=== PATIENT | female | born 1985 | race African-American/Black ===

== ENCOUNTER 2018-08-07 15:38 | Inpatient (IN) | payer OTHER ==
[~2018-08-07] VITALS: Ht 160 cm; Wt 49.0 kg
[2018-08-07] MEDS ORDERED: SODIUM CHLORIDE 0.9% 1L BAG IV* STA (15:51)
[2018-08-07] MEDS ORDERED: AZITHROMYCIN 500MG/NS (PMX) 250 ML IV STA (15:51)
[2018-08-07] MEDS ORDERED: CEFTRIAXONE 1 GM/50 ML (PMX) 50 ML IVPB STA (15:51)
[2018-08-07] MEDS ORDERED: ACETAMINOPHEN 500 MG TAB ONE (16:51)
[2018-08-07] MEDS ORDERED: SULFAMETHOXAZOLE IVPB ONE (17:00)
[2018-08-07] MEDS ORDERED: ACETAMINOPHEN 500 MG TAB PO STA (17:00)
[2018-08-07] MEDS ORDERED: DEXTROSE IVPB ONE (17:00)
[2018-08-07] MEDS ORDERED: TRIMETHOPRIM IVPB ONE (17:00)
[2018-08-07] MEDS ORDERED: PROP10TA6 PO (17:09)
[2018-08-07] MEDS ORDERED: SULF1TAB31 PO (17:13)
[2018-08-07] MEDS ORDERED: BIKTARVY PO (17:13)
[2018-08-07] MEDS ORDERED: AZIT600T4 PO (17:13)
[2018-08-07] MEDS ORDERED: ONDANSETRON 4 MG INJ IV PRN ×2 (17:30→18:00)
[2018-08-07] MEDS ORDERED: ACETAMINOPHEN 325 MG TAB PO PRN ×2 (17:30→18:00)
--- NOTE | 2018-08-07 17:44 | ERD ---
ER Documentation Chief Complaint Chief Complaint fever , low saturation; cough HPI 33-year-old female with a history of HIV/AIDS noncompliant with medications sent by primary care physician for concerns of PCP pneumonia. Patient states that for several months she has been short of breath with intermittent fevers. She went to another hospital about 3 weeks ago and she was told that everything was fine. However she went to her primary care doctor, where labs were done and showed that her CD4 count is low. She is complaining of severe shortness of breath but no associated chest pain. She has generalized weakness with weight loss. No phlegm production or hemoptysis. ROS All systems reviewed and are negative except as per history of present illness. Medications Home Meds Reported Medications [Biktarvy] No Conflict Check, 1 TAB PO DAILY 08/07/18 Azithromycin* (Azithromycin*) 600 Mg Tablet, 600 MG PO DAILY for TO PREVENT PNEUMONIA, TAB 08/07/18 Sulfamethoxazole/Trimethoprim* (Bactrim Ds* Tablet) 1 Each Tablet, 1 TAB PO D AILY for TO PREVENT PNEUMONIA, TAB 08/07/18 Propranolol Hcl* (Propranolol Hcl*) 10 Mg Tablet, 10 MG PO BID for ANXIETY, TAB 08/07/18 Allergies Allergies: Coded Allergies: No Known Allergy (Unverified , 08/07/18) PMhx/Soc History of Surgery: Yes ( X2) Anesthesia Reaction: No Hx Neurological Disorder: No Hx Respiratory Disorders: No Hx Cardiac Disorders: No Hx Psychiatric Problems: Yes (ANXIETY) Hx Miscellaneous Medical Probl: Yes (SEBORRHEIC DERMAITIS, RHEUMATOID ARTHRITIS, FIBROADENOMA BREAST, VIT-D DEFI) Hx Alcohol Use: No Hx Substance Use: No Hx Tobacco Use: No Smoking Status: Never smoker FmHx Family History: No diabetes Physical Exam Vitals Vital Signs Date Temp Pulse Resp B/P (MAP) Pulse Ox O2 O2 Flow FiO2 Time Delivery Rate 08/07/18 123 42 103/62 99 Mask 10.0 17:32 (76) 08/07/18 Simple 10 16:35 Mask 08/07/18 104.7 143 32 193/88 75 15:47 (123) Physical Exam Const: In significant respiratory distress, very thin body habitus Head: Atraumatic Eyes: Normal Conjunctiva ENT: Dry mucous membranes normal External Ears, Nose and Mouth. Neck: Full range of motion. No meningismus. Resp: Tachypneic with retractions. Diminished breath sounds bilaterally with no obvious wheezing, rales, rhonchi, however respiratory effort poor Cardio: Tachycardic with regular rhythm, no murmurs. 2+ distal pulses Abd: Soft, non tender, non distended. Normal bowel sounds Skin: No petechiae or rashes Back: No midline or flank tenderness Ext: No cyanosis, or edema Neur: Awake and alert, no facial asymmetry, mentating normally, normal speech, moving all extremities Psych: Normal Mood and Affect Result Diagram: 08/07/18 1606 08/07/18 1606 Results 24 hrs Laboratory Tests Test 08/07/18 16:04 08/07/18 16:06 08/07/18 16:09 08/07/18 17:30 Serum HCG, NEGATIVE Qualitative White Blood Count 13.0 10^3/ul Red Blood Count 3.94 10^6/ul Hemoglobin 11.2 g/dl Hematocrit 34.2 % Mean Corpuscular 86.8 fl Volume Mean Corpuscular 28.4 pg Hemoglobin Mean Corpuscular 32.7 g/dl Hemoglobin Concent Red Cell 13.0 % Distribution Width Platelet Count 439 10^3/UL Mean Platelet 10.0 fl Volume Immature 1.200 % Granulocytes % Neutrophils % 73.9 % Lymphocytes % 18.8 % Monocytes % 4.9 % Eosinophils % 0.6 % Basophils % 0.6 % Nucleated Red Blood 0.0 /100WBC Cells % Immature 0.150 10^3/ul Granulocytes # Neutrophils # 9.6 10^3/ul Lymphocytes # 2.4 10^3/ul Monocytes # 0.6 10^3/ul Eosinophils # 0.1 10^3/ul Basophils # 0.1 10^3/ul Nucleated Red Blood 0.0 10^3/ul Cells # Sodium Level 132 mmol/L Potassium Level 4.4 mmol/L Chloride Level 102 mmol/L Carbon Dioxide 22 mmol/L Level Anion Gap 8 Blood Urea Nitrogen 12 mg/dl Creatinine 0.74 mg/dl Est Glomerular > 60 mL/min Filtrat Rate mL/min Glucose Level 137 mg/dl Calcium Level 9.2 mg/dl Total Bilirubin 0.6 mg/dl Direct Bilirubin 0.00 mg/dl Indirect Bilirubin 0.6 mg/dl Aspartate Amino 34 IU/L Transf (AST/SGOT) Alanine 15 IU/L Aminotransferase (A LT/SGPT) Alkaline 72 IU/L Phosphatase Total Protein 7.1 g/dl Albumin 3.4 g/dl Globulin 3.70 g/dl Albumin/Globulin 0.91 Ratio POC Venous Lactate 2.0 mmol/L Urine Color YELLOW Urine Clarity SLIGHTLY CLOUDY Urine pH 7.0 Urine Specific 1.013 [place] Urine Ketones NEGATIVE mg/dL Urine Nitrite NEGATIVE mg/dL Urine Bilirubin NEGATIVE mg/dL Urine Urobilinogen NEGATIVE mg/dL Urine Leukocyte NEGATIVE Michelle/ul Esterase Urine Microscopic 1 /HPF RBC Urine Microscopic 2 /HPF WBC Urine Squamous FEW /HPF Epithelial Cells Urine Bacteria FEW /HPF Urine Mucus FEW /HPF Urine Hemoglobin NEGATIVE mg/dL Urine Glucose NEGATIVE mg/dL Urine Total Protein NEGATIVE mg/dl Test 08/07/18 17:41 POC Beta HCG, NEGATIVE Qualitative Current Medications Medications Dose Sig/[place] Start Time Status Last (Trade) Ordered Route PRN Stop Time Admin Dose Reason Admin Sodium 1,350 ml BOLUS OVER 2 08/07/18 DC 08/07/18 Chloride HOURS STAT 15:51 08/07/18 16:24 (NS) IV* 15:53 Ceftriaxone 50 ml @ ONCE STAT 08/07/18 DC 08/07/18 Sodium 100 mls/hr IVPB 15:51 08/07/18 16:24 16:20 Azithromycin 250 ml @ ONCE STAT 08/07/18 DC 08/07/18 250 mls/hr IV 15:51 08/07/18 17:00 16:50 500 mg STK-MED 08/07/18 DC Acetaminophen ONCE .ROUTE 16:51 08/07/18 (Tylenol 16:52 Tab) 514 ml @ ONCE ONCE 08/07/18 DC Trimethoprim/ 343.333 IVPB 17:00 08/07/18 mls/hr 17:36 Sulfamethoxaz ole 14 ml/Dextrose 1,000 mg ONCE STAT 08/07/18 DC 08/07/18 Acetaminophen PO 17:00 08/07/18 17:51 (Tylenol 17:13 Tab) Ondansetron 4 mg ER BRIDGE 08/07/18 HCl (Zofran PRN IV 17:30 08/08/18 Inj) NAUSEA/VOMITI 17:29 NG 650 mg ER BRIDGE 08/07/18 Acetaminophen PRN PO 17:30 08/08/18 (Tylenol .MILD PAIN 17:29 Tab) 1-3 OR TEMP 150 ml @ Q24H IVPB 08/07/18 Levofloxacin/ 100 mls/hr 18:00 Dextrose 253.5 ml @ Q8 IVPB 08/07/18 UNV Trimethoprim/ 173.333 18:00 mls/hr Sulfamethoxaz ole 3.5 ml/Dextrose Sodium 1,000 ml @ Q24H IV 08/07/18 Chloride 40 mls/hr 17:36 IV Flush 3 ml PER 08/07/18 (NS 3 ml) PROTOCOL IV 18:00 Ondansetron 4 mg Q6H PRN 08/07/18 HCl (Zofran IV 18:00 Inj) NAUSEA/VOMITI NG 650 mg Q6H PRN 08/07/18 Acetaminophen PO .PAIN 1-3 18:00 (Tylenol OR TEMP Tab) 1 tab Q6H PRN 08/07/18 Acetaminophen PO .PAIN 4-6 18:00 / Hydrocodone Bitart ([place] (5/325)) Albuterol/ 3 ml Q6HWA RESP 08/07/18 Ipratropium THERAPY HHN 20:00 (Duoneb) Albuterol/ 3 ml Q2H RESP 08/07/18 Ipratropium THERAPY PRN 18:00 (Duoneb) HHN shortness of breath Budesonide 0.5 mg BID RESP 08/07/18 (Pulmicort THERAPY HHN 20:00 (Neb)) 40 mg Q8 IV 08/07/18 Methylprednis 22:00 olone Sodium Succinate (Solu-Medrol) Azithromycin 250 ml @ Q24H IVPB 08/08/18 UNV 250 mls/hr 18:00 Procedures/MDM EMERGENT LABS AND DIAGNOSTIC STUDIES: Lab Results above were reviewed and interpreted by me. CBC: leukocytosis, concerning for infection. Thrombocytosis, likely due to acute inflammatory process CMP: No evidence of clinically significant electrolyte abnormality, acidosis, renal failure, hypoglycemia, liver disease, or biliary obstruction Troponin within normal limits, not indicative of cardiac ischemia Lactate within normal limits but borderline UA: Pending negative 12-lead EKG was interpreted by Luke Coulter MD: sinus tachycardia at 104 bpm Normal axis Normal intervals No acute ST or T wave changes suggestive of acute ischemia or STEMI. Radiology Results as interpreted by Radiology below were reviewed by Juan Carlos Coulter MD: Chest x-ray shows bilateral opacities consistent with pneumonia Initial Nursing notes reviewed. Previous Medical Records requested via the Electronic Health Record. EMERGENCY DEPARTMENT COURSE / MEDICAL DECISION MAKING: Admit MDM: Patient presented with severe respiratory distress and fever. Given concern for pneumonia, sepsis work-up initiated. No evidence of severe sepsis or septic shock. Her oxygen saturation was low, she was tachypneic and tachycardic with fever upon arrival. Her saturations improved with supplemental oxygen by facemask. Chest x-ray does confirm evidence of bilateral pneumonia. Patient is most likely suffering from AIDS as well. Antibiotics for community-acquired pneumonia were given as well as Bactrim IV to cover PCP. I reviewed the labs sent by the primary care doctor. It seems that her CD4 is low and her TB test was indeterminate. For this reason, patient was placed in isolation. Patient's infectious symptoms have not stabilized, and the patient is at risk of rapid decompensation. The patient will be admitted for careful hydration, antibiotic therapy, and infectious source control. Severe Sepsis criteria: Infectious source: PCP pneumonia End organ damage indicated by: Lactate 2.0 mmol/L Acute Resp Failure (sat < 92% w/o oxygen) Sepsis Management: Time of recognition of severe sepsis: 1540 Within 3 hours of recognition: Blood cultures x 2 before broad-spectrum antibiotics: Yes 30 ml/kg NS bolus Completed Initial lactate 2.0 Repeat lactate pending Septic Shock Assessment: Any lactic acid > 4.0 No Persistent hypotension (SBP < 90 or 40 mmHg drop, MAP < 65) despite 30 mL/kg IV fluid bolus No Accepting Care Team Current data and ongoing care discussed. Admitting Physician: Dr. Faye Elena Wagon Driller(s): Outstanding Data: cultures, repeat lactate Critical Care Time: 40 minutes Treatments/Evaluations: Close monitoring and treatment of unstable vital signs, cardiorespiratory, and neurologic status, while maintaining tight balance of fluid, respiratory, and cardiac interventions. This includes the administration of emergency fluid management while maintaining close respiratory support as well as the provision of immediate and broad-spectrum antibiotic therapy, while performing a simultaneous assessment for possible sources in order to direct targeted therapy. This time includes discussing the case with the patient and the patients family.This time also includes the consideration for invasive and chemical support to prevent cardiopulmonary collapse. This time does not include all procedures stated elsewhere in this record. This time also includes reviewing old records, labs and radiological studies. This time includes examining and reexamining the patient. Additionally, this time also includes arranging care with admitting and consulting physicians. Departure Diagnosis: Primary Impression: Acute respiratory failure with hypoxia Additional Impressions: Bilateral pneumonia Pneumonia type: due to unspecified organism Lung location: upper lobe of lung Qualified Codes: J18.1 - Lobar pneumonia, unspecified organism AIDS (acquired immunodeficiency syndrome), CD4 <=200 Condition: Serious LETICIA COULTER MD Aug 07, 2018 17:44
[2018-08-07] MEDS ORDERED: HYDROCODONE/APAP (5/325) TAB PO PRN (18:00)
[2018-08-07] MEDS ORDERED: DEXTROSE IVPB SCH ×2 (18:00→20:00)
[2018-08-07] MEDS ORDERED: SULFAMETHOXAZOLE IVPB SCH ×2 (18:00→20:00)
[2018-08-07] MEDS ORDERED: ALBUTEROL/IPRATROPIUM (NEB) 3 ML AMP HHN PRN (18:00)
[2018-08-07] MEDS ORDERED: NACL 0.9% 3 ML SYG IV SCH (18:00)
[2018-08-07] MEDS ORDERED: TRIMETHOPRIM IVPB SCH ×2 (18:00→20:00)
[2018-08-07] MEDS ORDERED: LEVOFLOXACIN 750MG/D5W (PMX) 150 ML IVPB SCH (18:00)
--- NOTE | 2018-08-07 18:21 | HP ---
Date/Time of Note Date/Time of Note DATE: 08/07/18 TIME: 18:20 Assessment/Plan VTE Prophylaxis Pharmacological prophylaxis: other Lines/Catheters IV [facility]ter [facility] (from [facility]): Saline Lock Assessment/Plan Hospital Course Patient is an -[place] female with a past medical history significant for HIV and's infection since she was born transmitted by her mother who presents to [facility] for shortness of breath. Patient has been having on and off respiratory symptoms for the past 5 months and has been off her HIV antiretrovirals for the past 2 months. Patient states that for the past 3 weeks she has been getting progressively worse short of breath and today when she had worsening shortness of breath she went to her HIV clinic and her doctor told her to be admitted to the hospital. Patient currently feels generally weak and does complain of cough but it is not productive. Patient states that due to the shortness of breath is the reason for the cough and is not having any production or bloody cough. Patient denies any significant nausea vomiting chest pain, bowel or bladder dysfunction or leg pain. Objective Physical exam General: Patient is laying in bed and answers questions appropriately Mentation: Patient is alert and oriented 4, Head: Normocephalic atraumatic Eyes: EOMI, pupils reactive to light Neck: Supple, nontender, midline Respiratory: Coarse to auscultation bilaterally Cardiovascular: regular rate, no obvious murmurs Gastrointestinal: non-tender to palpation, bowel sounds heard. Neurological: Moves all extremities spontaneously Skin: No new skin lesions Assessment and plan Sepsis secondary to pneumonia -Cultures -IV antibiotic -IV fluid Acute hypoxic respiratory distress -Secondary to multifocal pneumonia -Treatment as per pneumonia Multifocal pneumonia, possible PCP pneumonia -Patient is immunocompromised, will treat for PCP pneumonia versus other possible opportunistic infections -IV Bactrim, IV cefepime, IV azithromycin, IV fluconazole due to immune compromise status, last CD4 count was in the 60s done last week per patient, documents at bedside -Steroids -Nebulizers, DuoNeb and budesonide -On high flow nasal cannula -QuantiFERON ordered, -CT chest with IV contrast ordered to further elucidate pneumonia HIV -Last CD4 count done a week ago is 64, will repeat here with viral count as well -Noncompliant for the past 2 months, did start a new regimen 1 week ago. -Infectious disease consulted Fever -Secondary to above sepsis and pneumonia -Tylenol as needed Tachycardia -Secondary to above sepsis pneumonia -IV fluid -EKG noted Hypertensive urgency -Now within normal limits -Monitor closely Disposition -Infectious disease consultation pending -IV fluid, IV antibiotic, treatment for multifocal pneumonia, CT chest pending Result Diagram: 08/07/18 1606 08/07/18 1606 Results 24hrs Laboratory Tests Test 08/07/18 16:04 08/07/18 16:06 08/07/18 16:09 08/07/18 17:30 Serum HCG, NEGATIVE Qualitative White Blood Count 13.0 H Red Blood Count 3.94 L Hemoglobin 11.2 L Hematocrit 34.2 L Mean Corpuscular 86.8 Volume Mean Corpuscular 28.4 L Hemoglobin Mean Corpuscular 32.7 Hemoglobin Concent Red Cell 13.0 Distribution Width Platelet Count 439 H Mean Platelet 10.0 Volume Immature 1.200 H Granulocytes % Neutrophils % 73.9 Lymphocytes % 18.8 Monocytes % 4.9 Eosinophils % 0.6 Basophils % 0.6 Nucleated Red 0.0 Blood Cells % Immature 0.150 H Granulocytes # Neutrophils # 9.6 H Lymphocytes # 2.4 Monocytes # 0.6 Eosinophils # 0.1 Basophils # 0.1 Nucleated Red 0.0 Blood Cells # Sodium Level 132 L Potassium Level 4.4 Chloride Level 102 Carbon Dioxide 22 Level Anion Gap 8 Blood Urea 12 Nitrogen Creatinine 0.74 Est Glomerular > 60 Filtrat Rate mL/min Glucose Level 137 Calcium Level 9.2 Total Bilirubin 0.6 Direct Bilirubin 0.00 Indirect Bilirubin 0.6 Aspartate Amino 34 Transf (AST/SGOT) Alanine 15 Aminotransferase ( ALT/SGPT) Alkaline 72 Phosphatase Total Protein 7.1 Albumin 3.4 Globulin 3.70 H Albumin/Globulin 0.91 Ratio POC Venous Lactate 2.0 Urine Color YELLOW Urine Clarity SLIGHTLY CLOUDY A Urine pH 7.0 Urine Specific 1.013 [place] Urine Ketones NEGATIVE Urine Nitrite NEGATIVE Urine Bilirubin NEGATIVE Urine Urobilinogen NEGATIVE Urine Leukocyte NEGATIVE Esterase Urine Microscopic 1 RBC Urine Microscopic 2 WBC Urine Squamous FEW Epithelial Cells Urine Bacteria FEW A Urine Mucus FEW A Urine Hemoglobin NEGATIVE Urine Glucose NEGATIVE Urine Total NEGATIVE Protein Test 08/07/18 17:41 POC Beta HCG, NEGATIVE Qualitative HPI/ROS Admit Date/Time Admit Date/Time PMH/Family/Social Past Medical History Medications Current Medications Ondansetron HCl (Zofran Inj) 4 mg ER BRIDGE PRN IV NAUSEA/VOMITING; Start 08/07/18 at 17:30; Stop 08/08/18 at 17:29 Acetaminophen (Tylenol Tab) 650 mg ER BRIDGE PRN PO .MILD PAIN 1-3 OR TEMP; Start 08/07/18 at 17:30; Stop 08/08/18 at 17:29 Levofloxacin/ Dextrose 150 ml @ 100 mls/hr Q24H IVPB ; Start 08/07/18 at 18:00 Trimethoprim/ Sulfamethoxazole 3.5 ml/Dextrose 253.5 ml @ 173.333 mls/hr Q8 IVPB ; Start 08/07/18 at 18:00; Status UNV Sodium Chloride 1,000 ml @ 40 mls/hr Q24H IV ; Start 08/07/18 at 17:36 IV Flush (NS 3 ml) 3 ml PER PROTOCOL IV ; Start 08/07/18 at 18:00 Ondansetron HCl (Zofran Inj) 4 mg Q6H PRN IV NAUSEA/VOMITING; Start 08/07/18 at 18:00 Acetaminophen (Tylenol Tab) 650 mg Q6H PRN PO .PAIN 1-3 OR TEMP; Start 08/07/18 at 18:00 Acetaminophen/ Hydrocodone Bitart ([place] (5/325)) 1 tab Q6H PRN PO .PAIN 4-6; Start 08/07/18 at 18:00 Albuterol/ Ipratropium (Duoneb) 3 ml Q6HWA RESP THERAPY HHN ; Start 08/07/18 at 20:00 Albuterol/ Ipratropium (Duoneb) 3 ml Q2H RESP THERAPY PRN HHN shortness of elin ath; Start 08/07/18 at 18:00 Budesonide (Pulmicort (Neb)) 0.5 mg BID RESP THERAPY HHN ; Start 08/07/18 at 20:00 Methylprednisolone Sodium Succinate (Solu-Medrol) 40 mg Q8 IV ; Start 08/07/18 at 22:00 Azithromycin 250 ml @ 250 mls/hr Q24H IVPB ; Start 08/08/18 at 18:00; Status UNV Coded Allergies: No Known Allergy (Unverified , 08/07/18) Social History Smoking Status: Never smoker Exam/Review of Systems Vital Signs Vitals Vital Signs Date Temp Pulse Resp B/P (MAP) Pulse Ox O2 O2 Flow FiO2 Time Delivery Rate 08/07/18 100 60 18:11 08/07/18 123 42 103/62 Mask 10.0 17:32 (76) 08/07/18 104.7 15:47 STEPHANIE COLÓN Aug 07, 2018 18:21
[2018-08-07] MEDS ORDERED: METHYLPREDNISOLONE 125 MG INJ IV ONE (18:30)
[2018-08-07] MEDS: SOD CHLORIDE 0.9% 1,000 ML IV SCH (18:47)
[2018-08-07] MEDS: FLUCONAZOLE 100 MG/50 ML (PMX) 50 ML IVPB SCH (18:47)
[2018-08-07] MEDS ORDERED: IOHEXOL 300MG/ML 150 ML BTL ONE (19:47)
[2018-08-07] MEDS ORDERED: SOD CHLORIDE 0.9% 100 ML ONE (19:47)
[2018-08-07] MEDS: TRIMETHOPRIM/SULFAMETHOXAZOLE 15 ML in DEXTROSE 5% 500 ML IVPB SCH (19:49)
[2018-08-07] MEDS: ALBUTEROL/IPRATROPIUM (NEB) 3 ML AMP HHN SCH (20:05)
[2018-08-07] MEDS: BUDESONIDE (NEB) 0.5MG/2ML AMP HHN SCH (20:24)
[2018-08-07] MEDS: CEFEPIME 1GM/50 ML (PMX) 50 ML IVPB SCH (21:01)
[2018-08-07] MEDS: METHYLPREDNISOLONE 40 MG INJ IV SCH (22:00)
--- NOTE | 2018-08-07 22:41 | CONS ---
DATE OF ADMISSION: 08/07/2018 DATE OF CONSULTATION: 08/07/2018 TYPE OF CONSULTATION: Infectious Disease REASON FOR CONSULTATION: Antibiotic management. HISTORY OF PRESENT ILLNESS: Caitlyn Clemons is a 33-year-old female who comes in with fever, low sa turation and cough. The patient does have history of HIV/AIDS with noncompliance with her medication who comes in for concerns of PCP pneumonia. She has been short of breath for several months with in termittent fevers. She went to another hospital about three weeks ago, told that everything was fine . She went to her primary physician. Labs were done and showed that her CD4 was low. She is compla ining of shortness of breath. She has general weakness and weight loss. PAST MEDICAL HISTORY: Surgery: She had C-sections x2. Medical history: She is HIV positive. She has anxiety. She has rheumatoid arthritis, seborrhoeic dermatitis, fibroadenoma of the breast, vitam in D deficiency. FAMILY HISTORY: Noncontributory. SOCIAL HISTORY: She does not smoke, drink or abuse drugs. ALLERGIES: NONE TO PENICILLIN, SULFA OR FOODS. MEDICATIONS: Per chart. REVIEW OF SYSTEMS: Noncontributory. PHYSICAL EXAMINATION: VITAL SIGNS: Temperature 104.7. SKIN: Without generalized rash. HEENT: Within normal limits. NECK: Supple. LYMPH NODES: None palpable. CHEST: Decreased breath sounds at the bases. She is tachypneic. No wheezes, but increased respirat ory effort. HEART: Tachycardic without murmur or gallop. ABDOMEN: Soft, nontender, without organosplenomegaly or masses. EXTREMITIES: Without cyanosis, clubbing or edema. RECTAL AND GENITAL: Deferred. NEUROLOGIC: No focal neurological abnormalities. ANCILLARY LABORATORY DATA: White count 13,000, H and H 11.2 and 34.2, platelet count 439,000. BUN a nd creatinine 12/0.74. She has 74 % neutrophils. IMPRESSION AND PLAN: The patient was started on Unasyn and azithromycin, also started on Bactrim (tr imethoprim sulfamethoxazole). She is on 253.5 mL/kg. She is also on methylprednisolone 40 mg IV pig gyback q.8h. The patient has leukocytosis and thrombocytosis. Chest x-ray shows bilateral opacities consistent with pneumonia. We do not know what her CD4 count is or her viral load. She has bilater al pneumonia. She was started on community-acquired pneumonia regimen as well as Bactrim IV to cover PCP and steroids. The patient was also placed in isolation. She was seen by Dr. Elena, the [facility]. She is an -[place] female ____ HIV and infection since she was born, transmitted by her mother. She has been off her antiretrovirals for two months. Last CD4 count was in the 60s done las t week per patient, so she has a bonafide aids. She is on Bactrim, steroids, cefepime, azithromycin, and fluconazole. QuantiFERON was ordered. CT scan of the chest with IV contrast was ordered as wel l. The patient should be seen by pulmonary medicine as well as infectious disease. I will dictate m y findings to the hospitalist. Dictated By: SUSANA VILLALPANDO MD, JD/ELAINA Conf#: [id number] DID#: [id number]
[2018-08-08] VITALS (11 sets, daily range): BP systolic 96–113; BP diastolic 55–67; PULSE 63–100; RESP 17–20; Ht 160 cm; Wt 49.0 kg
[2018-08-08] MEDS: METHYLPREDNISOLONE 40 MG INJ IV SCH ×3 (05:40→21:37)
[2018-08-08] MEDS: ALBUTEROL/IPRATROPIUM (NEB) 3 ML AMP HHN SCH ×3 (08:10→20:35)
[2018-08-08] MEDS: CEFEPIME 1GM/50 ML (PMX) 50 ML IVPB SCH ×2 (08:55→21:01)
[2018-08-08] MEDS: BUDESONIDE (NEB) 0.5MG/2ML AMP HHN SCH ×2 (09:59→20:35)
[2018-08-08] MEDS: TRIMETHOPRIM/SULFAMETHOXAZOLE 15 ML in DEXTROSE 5% 500 ML IVPB SCH ×3 (10:07→21:50)
--- NOTE | 2018-08-08 11:26 | CONS ---
Assessment/Plan Assessment/Plan Assessment/Plan (Daily) Assessment and recommendations; 1. Patient admitted with bilateral diffuse pneumonia likely PCP in etiology. Currently on appropriate antimicrobial regimen as well as systemic steroids. 2. Intolerance to anti-retroviral regimen, patient off medication for the last 2 months with low CD4 count. Continue on supportive care. Antibiotics per ID recommendations. Consultation Date/Type/Reason Admit Date/Time Date of Consultation: Aug 08, 2018 Type of Consult Pulmonary Patient is a 33-year-old lady who came into the hospital yesterday with a few days history of shortness of breath and cough. Upon evaluation a chest x-ray was done which is showing diffuse bilateral pneumonia. Patient also had a CT scan of chest done which is showing similar findings. Patient does have a history of HIV and has been off her antiretroviral regimen for the last 2 months. Patient does have a low CD4 count. By the time I saw her, patient is completely awake and alert and feeling better since admission. Denies any high fever, chills, chest pain, wheezing, complains of scant cough without any sputum production. Also complains of weight loss for the last few weeks. Past medical history; 1. HIV positive as outlined above. Since . 2. Per patient no recent pneumonia. Patient apparently had pneumonia when she was 4 years old. 3. Patient has been off her medication for the last 2 months because of intolerance to medications. Medications; reviewed. Allergies; none. Social history; noncontributory. Family history; noncontributory. Occupational history; patient is on disability. Review of systems; denies any headache, seizures, chest pain, tightness of breath is slightly improved. Denies any sputum production, chills, hemoptysis. Any abdominal pain, nausea vomiting. Any diarrhea. Complains of weight loss and weakness. Denies any skin changes or any arthritis symptoms. Denies any visual changes. General exam; young woman, appears quite emaciated. Awake and alert. Currently in no distress. Date/Time of Note DATE: 08/08/18 TIME: 11:21 Past Medical History Home Meds Reported Medications [Biktarvy] No Conflict Check, 1 TAB PO DAILY 08/07/18 Azithromycin* (Azithromycin*) 600 Mg Tablet, 600 MG PO DAILY for TO PREVENT PNEUMONIA, TAB 08/07/18 Sulfamethoxazole/Trimethoprim* (Bactrim Ds* Tablet) 1 Each Tablet, 1 TAB PO DAILY for TO PREVENT PNEUMONIA, TAB 08/07/18 Propranolol Hcl* (Propranolol Hcl*) 10 Mg Tablet, 10 MG PO BID for ANXIETY, TAB 08/07/18 Medications Current Medications Sodium Chloride 1,000 ml @ 40 mls/hr Q24H IV Last administered on 08/07/18at 18:47; Admin Dose 40 MLS/HR; Start 08/07/18 at 17:36 IV Flush (NS 3 ml) 3 ml PER PROTOCOL IV ; Start 08/07/18 at 18:00 Ondansetron HCl (Zofran Inj) 4 mg Q6H PRN IV NAUSEA/VOMITING; Start 08/07/18 at 18:00 Acetaminophen (Tylenol Tab) 650 mg Q6H PRN PO .PAIN 1-3 OR TEMP; Start 08/07/18 at 18:00 Acetaminophen/ Hydrocodone Bitart ([place] (5/325)) 1 tab Q6H PRN PO .PAIN 4-6; Start 08/07/18 at 18:00 Albuterol/ Ipratropium (Duoneb) 3 ml Q6HWA RESP THERAPY HHN Last administered on 08/08/18at 08:10; Admin Dose 3 ML; Start 08/07/18 at 20:00 Albuterol/ Ipratropium (Duoneb) 3 ml Q2H RESP THERAPY PRN HHN shortness of breath; Start 08/07/18 at 18:00 Budesonide (Pulmicort (Neb)) 0.5 mg BID RESP THERAPY HHN Last administered on 08/08/18at 09:59; Admin Dose 0.5 MG; Start 08/07/18 at 20:00 Methylprednisolone Sodium Succinate (Solu-Medrol) 40 mg Q8 IV Last administered on 08/08/18at 05:40; Admin Dose 40 MG; Start 08/07/18 at 22:00 Azithromycin 250 ml @ 250 mls/hr Q24H IVPB ; Start 08/08/18 at 19:00 Cefepime HCl 50 ml @ 100 mls/hr Q12 IVPB Last administered on 08/08/18at 08:55; Admin Dose 100 MLS/HR; Start 08/07/18 at 21:00 Fluconazole/ Sodium Chloride 50 ml @ 50 mls/hr Q24H IVPB Last administered on 08/07/18at 18:47; Admin Dose 50 MLS/HR; Start 08/07/18 at 18:30 Trimethoprim/ Sulfamethoxazole 15 ml/Dextrose 515 ml @ 343.333 mls/hr Q8 IVPB Last administered on 08/08/18at 10:07; Admin Dose 343.333 MLS/HR; Start 08/07/18 at 20:00 Allergies: Coded Allergies: No Known Allergy (Unverified , 08/07/18) Social History Smoking Status: Never smoker Exam/Review of Systems Exam Vitals Vital Signs Date Temp Pulse Resp B/P (MAP) Pulse Ox O2 O2 Flow FiO2 Time Delivery Rate 08/08/18 100 60 10:55 08/08/18 20 10:02 08/08/18 70 08:48 08/08/18 97.4 97/67 (77) 07:06 08/08/18 Nasal 20.0 04:26 Cannula Exam H EENT exam; supple neck, no JVD. No lymphadenopathy. Midline trachea. No thyromegaly. Patient has fair dentition. No pharyngeal thrush. No neck masses. Pupils are midsize bilaterally. Chest exam; diminished but clear breath sounds. S1-S2 audible, no murmurs. Regular rhythm. Abdomen exam; soft, nontender. No organomegaly. Bowel sounds audible. Extremity exam; no peripheral edema clubbing. [employer] exam; no focal deficit. Skin examination; no rash. Results Result Diagram: 08/08/18 0718 08/08/18 0718 Results 24hrs Laboratory Tests Test 08/07/18 16:04 08/07/18 16:06 08/07/18 16:09 08/07/18 17:30 Serum HCG, NEGATIVE Qualitative White Blood Count 13.0 H Red Blood Count 3.94 L Hemoglobin 11.2 L Hematocrit 34.2 L Mean Corpuscular 86.8 Volume Mean Corpuscular 28.4 L Hemoglobin Mean Corpuscular 32.7 Hemoglobin Concent Red Cell 13.0 Distribution Width Platelet Count 439 H Mean Platelet 10.0 Volume Immature 1.200 H Granulocytes % Neutrophils % 73.9 Lymphocytes % 18.8 Monocytes % 4.9 Eosinophils % 0.6 Basophils % 0.6 Nucleated Red 0.0 Blood Cells % Immature 0.150 H Granulocytes # Neutrophils # 9.6 H Lymphocytes # 2.4 Monocytes # 0.6 Eosinophils # 0.1 Basophils # 0.1 Nucleated Red 0.0 Blood Cells # Sodium Level 132 L Potassium Level 4.4 Chloride Level 102 Carbon Dioxide 22 Level Anion Gap 8 Blood Urea 12 Nitrogen Creatinine 0.74 Est Glomerular > 60 Filtrat Rate mL/min Glucose Level 137 Calcium Level 9.2 Total Bilirubin 0.6 Direct Bilirubin 0.00 Indirect Bilirubin 0.6 Aspartate Amino 34 Transf (AST/SGOT) Alanine 15 Aminotransferase ( ALT/SGPT) Alkaline 72 Phosphatase Total Protein 7.1 Albumin 3.4 Globulin 3.70 H Albumin/Globulin 0.91 Ratio POC Venous Lactate 2.0 Urine Color YELLOW Urine Clarity SLIGHTLY CLOUDY A Urine pH 7.0 Urine Specific 1.013 [place] Urine Ketones NEGATIVE Urine Nitrite NEGATIVE Urine Bilirubin NEGATIVE Urine Urobilinogen NEGATIVE Urine Leukocyte NEGATIVE Esterase Urine Microscopic 1 RBC Urine Microscopic 2 WBC Urine Squamous FEW Epithelial Cells Urine Bacteria FEW A Urine Mucus FEW A Urine Hemoglobin NEGATIVE Urine Glucose NEGATIVE Urine Total NEGATIVE Protein Test 08/07/18 17:41 08/07/18 18:38 08/07/18 21:30 08/08/18 07:18 POC Beta HCG, NEGATIVE Qualitative Lactic Acid Level 1.0 1.0 Hepatitis B NEGATIVE Surface Antigen Hepatitis B Core NEGATIVE Total Antibody Hepatitis C NEGATIVE Antibody HIV (1&2) Antibody REACTIVE H White Blood Count 6.4 # Red Blood Count 3.51 L Hemoglobin 9.9 L Hematocrit 31.0 L Mean Corpuscular 88.3 Volume Mean Corpuscular 28.2 L Hemoglobin Mean Corpuscular 31.9 L Hemoglobin Concent Red Cell 13.0 Distribution Width Platelet Count 363 Mean Platelet 10.2 Volume Immature 0.900 H Granulocytes % Neutrophils % 83.9 H Lymphocytes % 11.8 L Monocytes % 3.1 Eosinophils % 0.0 Basophils % 0.3 Nucleated Red 0.0 Blood Cells % Immature 0.060 H Granulocytes # Neutrophils # 5.3 Lymphocytes # 0.8 Monocytes # 0.2 L Eosinophils # 0.0 Basophils # 0.0 Nucleated Red 0.0 Blood Cells # Absolute 0.042 Reticulocyte Count Percent 1.2 Reticulocyte Count Sodium Level 140 Potassium Level 4.7 Chloride Level 111 H Carbon Dioxide 24 Level Anion Gap 5 Blood Urea 12 Nitrogen Creatinine 0.51 Est Glomerular > 60 Filtrat Rate mL/min Glucose Level 142 Hemoglobin A1c 5.7 Calcium Level 8.8 Magnesium Level 2.4 Iron Level 27 L Total Iron Binding 268 Capacity Percent Iron 10 L Saturation Total Bilirubin 0.2 Direct Bilirubin 0.00 Indirect Bilirubin 0.2 Aspartate Amino 28 Transf (AST/SGOT) Alanine 16 Aminotransferase ( ALT/SGPT) Alkaline 60 Phosphatase Total Protein 6.2 Albumin 2.8 L Globulin 3.40 H Albumin/Globulin 0.82 Ratio Triglycerides 64 Level Cholesterol Level 83 L LDL Cholesterol, 54 Calculated HDL Cholesterol 16 L Cholesterol/HDL 5.1 Ratio Thyroid 0.714 Stimulating Hormone (TSH) Medications Medication Current Medications Sodium Chloride 1,000 ml @ 40 mls/hr Q24H IV Last administered on 08/07/18at 18:47; Admin Dose 40 MLS/HR; Start 08/07/18 at 17:36 IV Flush (NS 3 ml) 3 ml PER PROTOCOL IV ; Start 08/07/18 at 18:00 Ondansetron HCl (Zofran Inj) 4 mg Q6H PRN IV NAUSEA/VOMITING; Start 08/07/18 at 18:00 Acetaminophen (Tylenol Tab) 650 mg Q6H PRN PO .PAIN 1-3 OR TEMP; Start 08/07/18 at 18:00 Acetaminophen/ Hydrocodone Bitart ([place] (5/325)) 1 tab Q6H PRN PO .PAIN 4-6; Start 08/07/18 at 18:00 Albuterol/ Ipratropium (Duoneb) 3 ml Q6HWA RESP THERAPY HHN Last administered on 08/08/18at 08:10; Admin Dose 3 ML; Start 08/07/18 at 20:00 Albuterol/ Ipratropium (Duoneb) 3 ml Q2H RESP THERAPY PRN HHN shortness of breath; Start 08/07/18 at 18:00 Budesonide (Pulmicort (Neb)) 0.5 mg BID RESP THERAPY HHN Last administered on 08/08/18at 09:59; Admin Dose 0.5 MG; Start 08/07/18 at 20:00 Methylprednisolone Sodium Succinate (Solu-Medrol) 40 mg Q8 IV Last administered on 08/08/18at 05:40; Admin Dose 40 MG; Start 08/07/18 at 22:00 Azithromycin 250 ml @ 250 mls/hr Q24H IVPB ; Start 08/08/18 at 19:00 Cefepime HCl 50 ml @ 100 mls/hr Q12 IVPB Last administered on 08/08/18at 08:55; Admin Dose 100 MLS/HR; Start 08/07/18 at 21:00 Fluconazole/ Sodium Chloride 50 ml @ 50 mls/hr Q24H IVPB Last administered on 08/07/18at 18:47; Admin Dose 50 MLS/HR; Start 08/07/18 at 18:30 Trimethoprim/ Sulfamethoxazole 15 ml/Dextrose 515 ml @ 343.333 mls/hr Q8 IVPB Last administered on 08/08/18at 10:07; Admin Dose 343.333 MLS/HR; Start 08/07/18 at 20:00 ARLEN PETERSON Aug 08, 2018 11:26
--- NOTE | 2018-08-08 14:32 | PN ---
Date/Time of Note Date/Time of Note DATE: 08/08/18 TIME: 14:31 Objective Vitals Vital Signs Date Temp Pulse Resp B/P (MAP) Pulse Ox O2 O2 Flow FiO2 Time Delivery Rate 08/08/18 86 20 96 55 13:59 08/08/18 97.4 103/58 11:28 (73) 08/08/18 Nasal 08:20 Cannula 08/08/18 20.0 04:26 Results Result Diagram: 08/08/18 0718 08/08/18 0718 Medications Medications Current Medications Sodium Chloride 1,000 ml @ 40 mls/hr Q24H IV Last administered on 08/07/18at 18:47; Admin Dose 40 MLS/HR; Start 08/07/18 at 17:36 IV Flush (NS 3 ml) 3 ml PER PROTOCOL IV ; Start 08/07/18 at 18:00 Ondansetron HCl (Zofran Inj) 4 mg Q6H PRN IV NAUSEA/VOMITING; Start 08/07/18 at 18:00 Acetaminophen (Tylenol Tab) 650 mg Q6H PRN PO .PAIN 1-3 OR TEMP; Start 08/07/18 at 18:00 Acetaminophen/ Hydrocodone Bitart ([place] (5/325)) 1 tab Q6H PRN PO .PAIN 4-6; Start 08/07/18 at 18:00 Albuterol/ Ipratropium (Duoneb) 3 ml Q6HWA RESP THERAPY HHN Last administered on 08/08/18at 13:56; Admin Dose 3 ML; Start 08/07/18 at 20:00 Albuterol/ Ipratropium (Duoneb) 3 ml Q2H RESP THERAPY PRN HHN shortness of breath; Start 08/07/18 at 18:00 Budesonide (Pulmicort (Neb)) 0.5 mg BID RESP THERAPY HHN Last administered on 08/08/18at 09:59; Admin Dose 0.5 MG; Start 08/07/18 at 20:00 Methylprednisolone Sodium Succinate (Solu-Medrol) 40 mg Q8 IV Last administered on 08/08/18at 14:23; Admin Dose 40 MG; Start 08/07/18 at 22:00 Azithromycin 250 ml @ 250 mls/hr Q24H IVPB ; Start 08/08/18 at 19:00 Cefepime HCl 50 ml @ 100 mls/hr Q12 IVPB Last administered on 08/08/18at 08:55; Admin Dose 100 MLS/HR; Start 08/07/18 at 21:00 Fluconazole/ Sodium Chloride 50 ml @ 50 mls/hr Q24H IVPB Last administered on 08/07/18at 18:47; Admin Dose 50 MLS/HR; Start 08/07/18 at 18:30 Trimethoprim/ Sulfamethoxazole 15 ml/Dextrose 515 ml @ 343.333 mls/hr Q8 IVPB Last administered on 08/08/18at 14:23; Admin Dose 343.333 MLS/HR; Start 08/07/18 at 20:00 VTE Prophylaxis Risk score (from Ns)>0 risk: 1 SCD applied (from Ns): Yes Lines/Catheters IV Catheter Type: Styles in Place: No Assessment/Plan Hospital Course Subjective Patient feeling much better however still on high flow Objective Physical exam General: Patient is laying in bed and answers questions appropriately Mentation: Patient is alert and oriented 4, Head: Normocephalic atraumatic Eyes: EOMI, pupils reactive to light Neck: Supple, nontender, midline Respiratory: Coarse to auscultation bilaterally Cardiovascular: regular rate, no obvious murmurs Gastrointestinal: non-tender to palpation, bowel sounds heard. Neurological: Moves all extremities spontaneously Skin: No new skin lesions Assessment and plan Sepsis secondary to pneumonia, resolving -Cultures -IV antibiotic -IV fluid stopped Acute hypoxic respiratory distress -Secondary to multifocal pneumonia -Treatment as per pneumonia Multifocal pneumonia, possible PCP pneumonia -Patient is immunocompromised, will treat for PCP pneumonia versus other possible opportunistic infections -IV Bactrim, IV cefepime, IV azithromycin, IV fluconazole due to immune compromise status, last CD4 count was in the 60s done last week per patient, documents at bedside -Steroids -Nebulizers, DuoNeb and budesonide -On high flow nasal cannula -QuantiFERON ordered, -CT chest with IV contrast noted -Hematology on board as well as infectious disease HIV -Last CD4 count done a week ago is 64, will repeat here with viral count as well -Noncompliant for the past 2 months, did start a new regimen 1 week ago. -Infectious disease consulted Fever, resolved -Secondary to above sepsis and pneumonia -Tylenol as needed Tachycardia, resolving -Secondary to above sepsis pneumonia -EKG noted Hypertensive urgency -Now within normal limits -Monitor closely Disposition -Infectious disease consultation pending -IV fluid, IV antibiotic, treatment for multifocal pneumonia, STEPHANIE COLÓN Aug 08, 2018 14:32
--- NOTE | 2018-08-08 15:19 | CONS ---
Assessment/Plan Assessment/Plan Hospital Course (Demo Recall) Patient is awake, short of breath with minimal exertion, afebrile WBC today 6.4 platelets 363 neutrophils 83.9 BUN [address] of the chest on admission revealed extensive bilateral consolidations please see full report in the chart Antimicrobials: Zithromax cefepime IV Bactrim fluconazole, Solu-Medrol Physical examination: Well-developed thin middle-aged woman who is alert in no distress. Head atraumatic normocephalic sclera nonicteric vehicle mucosa dry neck is supple chest rise symmetrical breath sounds with scattered rhonchi heart S1-S2 abdomen soft bowel sounds present extremities without cyanosis edema Assessment: 1. Acute hypoxemic respiratory failure 2. Pneumonia, likely PCP 3. HIV disease, not on any coverage Plan: Patient is on appropriate coverage, pulmonary on case, will follow CD4 count, LDH try to get sputum for PCP. Will not start her on any HIV medications given history of noncompliance and also to avoid immune reconstitution syndrome Consultation Date/Type/Reason Admit Date/Time Aug 07, 2018 at 17:18 Initial Consult Date 08/08/18 Type of Consult id Date/Time of Note DATE: 08/08/18 TIME: 15:18 Exam/Review of Systems Exam Vitals Vital Signs Date Temp Pulse Resp B/P (MAP) Pulse Ox O2 O2 Flow FiO2 Time Delivery Rate 08/08/18 86 20 96 55 13:59 08/08/18 97.4 103/58 11:28 (73) 08/08/18 Nasal 08:20 Cannula 08/08/18 20.0 04:26 Results Result Diagram: 08/08/18 0718 08/08/18 0718 Results 24hrs Laboratory Tests Test 08/07/18 16:04 08/07/18 16:06 08/07/18 16:09 08/07/18 17:30 Serum HCG, NEGATIVE Qualitative White Blood Count 13.0 H Red Blood Count 3.94 L Hemoglobin 11.2 L Hematocrit 34.2 L Mean Corpuscular 86.8 Volume Mean Corpuscular 28.4 L Hemoglobin Mean Corpuscular 32.7 Hemoglobin Concent Red Cell 13.0 Distribution Width Platelet Count 439 H Mean Platelet 10.0 Volume Immature 1.200 H Granulocytes % Neutrophils % 73.9 Lymphocytes % 18.8 Monocytes % 4.9 Eosinophils % 0.6 Basophils % 0.6 Nucleated Red 0.0 Blood Cells % Immature 0.150 H Granulocytes # Neutrophils # 9.6 H Lymphocytes # 2.4 Monocytes # 0.6 Eosinophils # 0.1 Basophils # 0.1 Nucleated Red 0.0 Blood Cells # Sodium Level 132 L Potassium Level 4.4 Chloride Level 102 Carbon Dioxide 22 Level Anion Gap 8 Blood Urea 12 Nitrogen Creatinine 0.74 Est Glomerular > 60 Filtrat Rate mL/min Glucose Level 137 Calcium Level 9.2 Total Bilirubin 0.6 Direct Bilirubin 0.00 Indirect Bilirubin 0.6 Aspartate Amino 34 Transf (AST/SGOT) Alanine 15 Aminotransferase ( ALT/SGPT) Alkaline 72 Phosphatase Total Protein 7.1 Albumin 3.4 Globulin 3.70 H Albumin/Globulin 0.91 Ratio POC Venous Lactate 2.0 Urine Color YELLOW Urine Clarity SLIGHTLY CLOUDY A Urine pH 7.0 Urine Specific 1.013 [place] Urine Ketones NEGATIVE Urine Nitrite NEGATIVE Urine Bilirubin NEGATIVE Urine Urobilinogen NEGATIVE Urine Leukocyte NEGATIVE Esterase Urine Microscopic 1 RBC Urine Microscopic 2 WBC Urine Squamous FEW Epithelial Cells Urine Bacteria FEW A Urine Mucus FEW A Urine Hemoglobin NEGATIVE Urine Glucose NEGATIVE Urine Total NEGATIVE Protein Test 08/07/18 17:41 08/07/18 18:38 08/07/18 21:30 08/08/18 07:18 POC Beta HCG, NEGATIVE Qualitative Lactic Acid Level 1.0 1.0 Hepatitis B NEGATIVE Surface Antigen Hepatitis B Core NEGATIVE Total Antibody Hepatitis C NEGATIVE Antibody HIV (1&2) Antibody REACTIVE H White Blood Count 6.4 # Red Blood Count 3.51 L Hemoglobin 9.9 L Hematocrit 31.0 L Mean Corpuscular 88.3 Volume Mean Corpuscular 28.2 L Hemoglobin Mean Corpuscular 31.9 L Hemoglobin Concent Red Cell 13.0 Distribution Width Platelet Count 363 Mean Platelet 10.2 Volume Immature 0.900 H Granulocytes % Neutrophils % 83.9 H Lymphocytes % 11.8 L Monocytes % 3.1 Eosinophils % 0.0 Basophils % 0.3 Nucleated Red 0.0 Blood Cells % Immature 0.060 H Granulocytes # Neutrophils # 5.3 Lymphocytes # 0.8 Monocytes # 0.2 L Eosinophils # 0.0 Basophils # 0.0 Nucleated Red 0.0 Blood Cells # Absolute 0.042 Reticulocyte Count Percent 1.2 Reticulocyte Count Sodium Level 140 Potassium Level 4.7 Chloride Level 111 H Carbon Dioxide 24 Level Anion Gap 5 Blood Urea 12 Nitrogen Creatinine 0.51 Est Glomerular > 60 Filtrat Rate mL/min Glucose Level 142 Hemoglobin A1c 5.7 Calcium Level 8.8 Magnesium Level 2.4 Iron Level 27 L Total Iron Binding 268 Capacity Percent Iron 10 L Saturation Ferritin 245.0 H Total Bilirubin 0.2 Direct Bilirubin 0.00 Indirect Bilirubin 0.2 Aspartate Amino 28 Transf (AST/SGOT) Alanine 16 Aminotransferase ( ALT/SGPT) Alkaline 60 Phosphatase Total Protein 6.2 Albumin 2.8 L Globulin 3.40 H Albumin/Globulin 0.82 Ratio Triglycerides 64 Level Cholesterol Level 83 L LDL Cholesterol, 54 Calculated HDL Cholesterol 16 L Cholesterol/HDL 5.1 Ratio Thyroid 0.714 Stimulating Hormone (TSH) Medications Medication Current Medications Sodium Chloride 1,000 ml @ 40 mls/hr Q24H IV Last administered on 08/07/18at 18:47; Admin Dose 40 MLS/HR; Start 08/07/18 at 17:36 IV Flush (NS 3 ml) 3 ml PER PROTOCOL IV ; Start 08/07/18 at 18:00 Ondansetron HCl (Zofran Inj) 4 mg Q6H PRN IV NAUSEA/VOMITING; Start 08/07/18 at 18:00 Acetaminophen (Tylenol Tab) 650 mg Q6H PRN PO .PAIN 1-3 OR TEMP; Start 08/07/18 at 18:00 Acetaminophen/ Hydrocodone Bitart ([place] (5/325)) 1 tab Q6H PRN PO .PAIN 4-6; Start 08/07/18 at 18:00 Albuterol/ Ipratropium (Duoneb) 3 ml Q6HWA RESP THERAPY HHN Last administered on 08/08/18at 13:56; Admin Dose 3 ML; Start 08/07/18 at 20:00 Albuterol/ Ipratropium (Duoneb) 3 ml Q2H RESP THERAPY PRN HHN shortness of breath; Start 08/07/18 at 18:00 Budesonide (Pulmicort (Neb)) 0.5 mg BID RESP THERAPY HHN Last administered on 08/08/18at 09:59; Admin Dose 0.5 MG; Start 08/07/18 at 20:00 Methylprednisolone Sodium Succinate (Solu-Medrol) 40 mg Q8 IV Last administered on 08/08/18at 14:23; Admin Dose 40 MG; Start 08/07/18 at 22:00 Azithromycin 250 ml @ 250 mls/hr Q24H IVPB ; Start 08/08/18 at 19:00 Cefepime HCl 50 ml @ 100 mls/hr Q12 IVPB Last administered on 08/08/18at 08:55; Admin Dose 100 MLS/HR; Start 08/07/18 at 21:00 Fluconazole/ Sodium Chloride 50 ml @ 50 mls/hr Q24H IVPB Last administered on 08/07/18at 18:47; Admin Dose 50 MLS/HR; Start 08/07/18 at 18:30 Trimethoprim/ Sulfamethoxazole 15 ml/Dextrose 515 ml @ 343.333 mls/hr Q8 IVPB Last administered on 08/08/18at 14:23; Admin Dose 343.333 MLS/HR; Start 08/07/18 at 20:00 YAHIR PARADA NP Aug 08, 2018 15:19
[2018-08-08] MEDS: SOD CHLORIDE 0.9% 1,000 ML IV SCH (17:36)
[2018-08-08] MEDS: FLUCONAZOLE 100 MG/50 ML (PMX) 50 ML IVPB SCH (18:02)
[2018-08-08] MEDS: AZITHROMYCIN 500MG/NS (PMX) 250 ML IVPB SCH ×2 (18:45→18:59)
[2018-08-08] MEDS ORDERED: LORAZEPAM 2 MG INJ IV PRN (23:30)
[2018-08-09] VITALS (11 sets, daily range): BP systolic 94–115; BP diastolic 52–60; PULSE 62–93; RESP 17–20
[2018-08-09] MEDS: METHYLPREDNISOLONE 40 MG INJ IV SCH ×3 (07:46→21:43)
[2018-08-09] MEDS: TRIMETHOPRIM/SULFAMETHOXAZOLE 15 ML in DEXTROSE 5% 500 ML IVPB SCH ×3 (07:47→22:00)
[2018-08-09] MEDS: ALBUTEROL/IPRATROPIUM (NEB) 3 ML AMP HHN SCH ×3 (08:15→20:55)
[2018-08-09] MEDS ORDERED: LORAZEPAM 0.5 MG TAB PO PRN (09:00)
[2018-08-09] MEDS: CEFEPIME 1GM/50 ML (PMX) 50 ML IVPB SCH ×2 (09:31→20:25)
[2018-08-09] MEDS: BUDESONIDE (NEB) 0.5MG/2ML AMP HHN SCH ×2 (10:01→20:55)
[2018-08-09] MEDS: SOD FERRIC GLUC COMPLX 125 MG in SOD CHLORIDE 0.9% 100 ML IVPB SCH (13:15)
--- NOTE | 2018-08-09 13:30 | PN ---
Date/Time of Note Date/Time of Note DATE: 08/09/18 TIME: 13:30 Objective Vitals Vital Signs Date Temp Pulse Resp B/P (MAP) Pulse Ox O2 O2 Flow FiO2 Time Delivery Rate 08/09/18 76 13:17 08/09/18 99 60 13:07 08/09/18 98.0 20 94/52 (66) 11:20 08/09/18 Nasal 20.0 01:24 Cannula Intake and Output 08/08/18 08/08/18 08/09/18 1515:00 23:00 07:00 IntakeIntake Total 565 ml 1780 ml BalanceBalance 565 ml 1780 ml Results Result Diagram: 08/09/18 0700 08/09/18 0700 Medications Medications Current Medications Sodium Chloride 1,000 ml @ 40 mls/hr Q24H IV Last administered on 08/07/18at 18:47; Admin Dose 40 MLS/HR; Start 08/07/18 at 17:36 IV Flush (NS 3 ml) 3 ml PER PROTOCOL IV ; Start 08/07/18 at 18:00 Ondansetron HCl (Zofran Inj) 4 mg Q6H PRN IV NAUSEA/VOMITING; Start 08/07/18 at 18:00 Acetaminophen (Tylenol Tab) 650 mg Q6H PRN PO .PAIN 1-3 OR TEMP; Start 08/07/18 at 18:00 Acetaminophen/ Hydrocodone Bitart ([place] (5/325)) 1 tab Q6H PRN PO .PAIN 4-6; Start 08/07/18 at 18:00 Albuterol/ Ipratropium (Duoneb) 3 ml Q6HWA RESP THERAPY HHN Last administered on 08/09/18at 08:15; Admin Dose 3 ML; Start 08/07/18 at 20:00 Albuterol/ Ipratropium (Duoneb) 3 ml Q2H RESP THERAPY PRN HHN shortness of eiln ath; Start 08/07/18 at 18:00 Budesonide (Pulmicort (Neb)) 0.5 mg BID RESP THERAPY HHN Last administered on 08/09/18at 10:01; Admin Dose 0.5 MG; Start 08/07/18 at 20:00 Methylprednisolone Sodium Succinate (Solu-Medrol) 40 mg Q8 IV Last administered on 6/7/19at 13:15; Admin Dose 40 MG; Start 08/07/18 at 22:00 Azithromycin 250 ml @ 250 mls/hr Q24H IVPB Last administered on 08/08/18 18:59; Admin Dose 250 MLS/HR; Start 08/08/18 at 19:00 Cefepime HCl 50 ml @ 100 mls/hr Q12 IVPB Last administered on 08/09/18 09:31; Admin Dose 100 MLS/HR; Start 08/07/18 at 21:00 Fluconazole/ Sodium Chloride 50 ml @ 50 mls/hr Q24H IVPB Last administered on 08/08/18 18:02; Admin Dose 50 MLS/HR; Start 08/07/18 at 18:30 Trimethoprim/ Sulfamethoxazole 15 ml/Dextrose 515 ml @ 343.333 mls/hr Q8 IVPB Last administered on 08/09/18 07:47; Admin Dose 343.333 MLS/HR; Start 08/07/18 at 20:00 Lorazepam (Ativan) 0.5 mg TID PRN PO ANXIETY; Start 08/09/18 at 09:00 Ferric Sodium Gluconate Complex 125 mg/Sodium Chloride 100 ml @ 100 mls/hr DAILY@1300 IVPB Last administered on 08/09/18 13:15; Admin Dose 100 MLS/HR; Start 08/09/18 at 13:00; Stop 08/11/18 at 13:59 Acyclovir (Zovirax) 400 mg BID PO ; Start 08/09/18 at 21:00 VTE Prophylaxis Risk score (from Ns)>0 risk: 3 SCD applied (from Ns): Yes Lines/Catheters IV Catheter Type: Styles in Place: No Assessment/Plan Hospital Course Subjective Patient feeling much better however still on high flow Objective Physical exam General: Patient is laying in bed and answers questions appropriately Mentation: Patient is alert and oriented 4, Head: Normocephalic atraumatic Eyes: EOMI, pupils reactive to light Neck: Supple, nontender, midline Respiratory: Coarse to auscultation bilaterally Cardiovascular: regular rate, no obvious murmurs Gastrointestinal: non-tender to palpation, bowel sounds heard. Neurological: Moves all extremities spontaneously Skin: No new skin lesions Assessment and plan Sepsis secondary to pneumonia, resolving -Cultures -IV antibiotic -IV fluid stopped Acute hypoxic respiratory distress -Secondary to multifocal pneumonia -Treatment as per pneumonia Multifocal pneumonia, possible PCP pneumonia -Patient is immunocompromised, will treat for PCP pneumonia versus other possible opportunistic infections -IV Bactrim, IV cefepime, IV azithromycin, IV fluconazole, acyclovir due to immune compromise status, last CD4 count was in the 60s done last week per patient, documents at bedside -Steroids -Nebulizers, DuoNeb and budesonide -On high flow nasal cannula -QuantiFERON ordered, -CT chest with IV contrast noted -Hematology on board as well as infectious disease HIV -Last CD4 count done a week ago is 64, will repeat here with viral count as well -Noncompliant for the past 2 months, did start a new regimen 1 week ago. -Infectious disease consulted Fever, resolved -Secondary to above sepsis and pneumonia -Tylenol as needed Tachycardia, resolving -Secondary to above sepsis pneumonia -EKG noted Hypertensive urgency -Now within normal limits -Monitor closely Disposition -Infectious disease consultation pending -IV fluid, IV antibiotic, treatment for multifocal pneumonia, STEPHANIE COLÓN Aug 09, 2018 13:30
--- NOTE | 2018-08-09 14:05 | CONS ---
Consult Date/Type/Reason Admit Date/Time Aug 07, 2018 at 17:18 Initial Consult Date 08/08/18 Type of Consult Pulmonary Date/Time of Note DATE: 08/09/18 TIME: 14:03 Subjective Patient stable this morning awake alert no respiratory distress. Continues high flow O2. Objective Vital Signs Date Temp Pulse Resp B/P (MAP) Pulse Ox O2 O2 Flow FiO2 Time Delivery Rate 08/09/18 76 13:17 08/09/18 99 60 13:07 08/09/18 98.0 20 94/52 (66) 11:20 08/09/18 Nasal 20.0 01:24 Cannula Intake and Output 08/08/18 08/08/18 08/09/18 1515:00 23:00 07:00 IntakeIntake Total 565 ml 1780 ml BalanceBalance 565 ml 1780 ml Exam GENERAL: Well-nourished well-developed lady comfortable at rest no acute distress VITAL SIGNS: per chart NECK: Supple. No JVD or lymphadenopathy. CARDIAC EXAM: S1, S2. No added sounds or murmurs. CHEST: Diminished air entry bilaterally with rales ABDOMEN: Soft, nontender. No guarding or rebound. EXTREMITIES: No cyanosis, clubbing or edema. NEUROLOGIC: Generalized weakness. No focal deficits. Vent Setting Fraction of Inspired Oxygen pe: 60 Results/Medications Result Diagram: 08/09/18 0700 08/09/18 0700 Results 24 hrs Laboratory Tests Test 08/08/18 16:15 08/09/18 05:00 08/09/18 07:00 Lactate Dehydrogenase 1051 H Blood Gas Specimen Source Blood arterial Arterial Blood Date Drawn 08/09/2018 5:50:14 AM Arterial Blood pH 7.429 (Temp corrected) Arterial Blood pCO2 28.0 L (Temp correct) Arterial Blood pO2 93.4 (Temp corrected) Arterial Blood HCO3 18.1 L Arterial Blood Base Excess -5.1 L Arterial Blood 96.9 Oxygen Saturation Sanchez Test ACCEPTAB Arterial Blood Gas Left Radial Puncture Site Arterial 0.2 Blood Carboxyhemoglobin Arterial Blood Methemoglobin 0.3 Blood Gas A-a O2 Differential 303.6 H Oxyhemoglobin Percent 96.4 Blood Gas Temperature 37.0 Blood Gas Actual 22 Respiration Rate Blood Gas Modality HFNC FiO2 60.0 Blood Gas Notified Whom MA Blood Gas Notified Time 08/09/2018 6:06:24 AM White Blood Count 18.0 #H Red Blood Count 3.45 L Hemoglobin 9.6 L Hematocrit 29.8 L Mean Corpuscular Volume 86.4 Mean Corpuscular Hemoglobin 27.8 L Mean Corpuscular 32.2 Hemoglobin Concent Red Cell Distribution Width 13.2 Platelet Count 405 Mean Platelet Volume 10.3 Immature Granulocytes % 1.600 H Neutrophils % 89.3 H Lymphocytes % 6.1 L Monocytes % 2.8 Eosinophils % 0.0 Basophils % 0.2 Nucleated Red Blood Cells % 0.0 Immature Granulocytes # 0.280 H Neutrophils # 16.1 H Lymphocytes # 1.1 Monocytes # 0.5 Eosinophils # 0.0 Basophils # 0.0 Nucleated Red Blood Cells # 0.0 Sodium Level 141 Potassium Level 4.3 Chloride Level 112 H Carbon Dioxide Level 21 Anion Gap 8 Blood Urea Nitrogen 10 Creatinine 0.54 Est Glomerular Filtrat > 60 Rate mL/min Glucose Level 125 Calcium Level 9.1 Phosphorus Level 3.1 Magnesium Level 2.4 Medications Current Medications Sodium Chloride 1,000 ml @ 40 mls/hr Q24H IV Last administered on 08/07/18at 18:47; Admin Dose 40 MLS/HR; Start 08/07/18 at 17:36 IV Flush (NS 3 ml) 3 ml PER PROTOCOL IV ; Start 08/07/18 at 18:00 Ondansetron HCl (Zofran Inj) 4 mg Q6H PRN IV NAUSEA/VOMITING; Start 08/07/18 at 18:00 Acetaminophen (Tylenol Tab) 650 mg Q6H PRN PO .PAIN 1-3 OR TEMP; Start 08/07/18 at 18:00 Acetaminophen/ Hydrocodone Bitart ([place] (5/325)) 1 tab Q6H PRN PO .PAIN 4-6; Start 08/07/18 at 18:00 Albuterol/ Ipratropium (Duoneb) 3 ml Q6HWA RESP THERAPY HHN Last administered on 08/09/18at 08:15; Admin Dose 3 ML; Start 08/07/18 at 20:00 Albuterol/ Ipratropium (Duoneb) 3 ml Q2H RESP THERAPY PRN HHN shortness of breath; Start 08/07/18 at 18:00 Budesonide (Pulmicort (Neb)) 0.5 mg BID RESP THERAPY HHN Last administered on 08/09/18 10:01; Admin Dose 0.5 MG; Start 08/07/18 at 20:00 Methylprednisolone Sodium Succinate (Solu-Medrol) 40 mg Q8 IV Last administered on 08/09/18 13:15; Admin Dose 40 MG; Start 08/07/18 at 22:00 Azithromycin 250 ml @ 250 mls/hr Q24H IVPB Last administered on 08/08/18 18:59; Admin Dose 250 MLS/HR; Start 08/08/18 at 19:00 Cefepime HCl 50 ml @ 100 mls/hr Q12 IVPB Last administered on 08/09/18 09:31; Admin Dose 100 MLS/HR; Start 08/07/18 at 21:00 Fluconazole/ Sodium Chloride 50 ml @ 50 mls/hr Q24H IVPB Last administered on 08/08/18 18:02; Admin Dose 50 MLS/HR; Start 08/07/18 at 18:30 Trimethoprim/ Sulfamethoxazole 15 ml/Dextrose 515 ml @ 343.333 mls/hr Q8 IVPB Last administered on 08/09/18 07:47; Admin Dose 343.333 MLS/HR; Start 08/07/18 at 20:00 Lorazepam (Ativan) 0.5 mg TID PRN PO ANXIETY; Start 08/09/18 at 09:00 Ferric Sodium Gluconate Complex 125 mg/Sodium Chloride 100 ml @ 100 mls/hr DAILY@1300 IVPB Last administered on 08/09/18 13:15; Admin Dose 100 MLS/HR; Start 08/09/18 at 13:00; Stop 08/11/18 at 13:59 Acyclovir (Zovirax) 400 mg BID PO ; Start 08/09/18 at 21:00 Assessment/Plan Hospital Course (Demo Recall) Assessment 1. Acute hypoxemic respiratory failure likely secondary to opportunistic infection probable pneumocystis jerovici 2. History of HIV off antiretroviral therapy for several months. Plan 1. Continue antibiotics 2. Continue steroids 3. Decrease FiO2 as tolerated 4. Resume antiretroviral therapy If no clinical radiographic improvement patient will require bronchoscopy NOREEN SERRANO MD, [facility] Aug 09, 2018 14:05
[2018-08-09] MEDS: SOD CHLORIDE 0.9% 1,000 ML IV SCH (17:24)
[2018-08-09] MEDS: FLUCONAZOLE 100 MG/50 ML (PMX) 50 ML IVPB SCH (17:26)
[2018-08-09] MEDS: AZITHROMYCIN 500MG/NS (PMX) 250 ML IVPB SCH (19:01)
--- NOTE | 2018-08-09 19:02 | CONS ---
Assessment/Plan Assessment/Plan Hospital Course (Demo Recall) 1100 patient remains on high flow oxygen satting 98% on 60 FiO2 she is in no distress no fevers overnight WBC 18 platelets 405 neutrophils 89.3 BUN 10 creatinine 0.54. CD4 count pending, per report was 60 couple months ago LDH 1050 Antimicrobials: Acyclovir 400 mg twice a day, Zithromax 250 mg daily, cefepime 1 g IV every 12 hours, Bactrim 15 mg/kg IV every 8 hours, fluconazole 100 mg kaylene ly, Solu-Medrol CT of the chest on admission revealed extensive bilateral consolidations please see full report in the chart Antimicrobials: Zithromax cefepime IV Bactrim fluconazole, Solu-Medrol Physical examination: Well-developed thin middle-aged woman who is alert in no distress. Head atraumatic normocephalic sclera nonicteric vehicle mucosa dry neck is supple chest rise symmetrical breath sounds with scattered rhonchi heart S1-S2 abdomen soft bowel sounds present extremities without cyanosis edema Assessment: 1. Acute hypoxemic respiratory failure 2. Pneumonia, likely PCP 3. HIV disease, likely AIDS Plan: Patient is stable, on appropriate coverage, follow CD4 count sputum cultu res and pulmonary recommendations. Will not start HIV coverage given patient's history of noncompliance and to avoid immune reconstitution syndrome Consultation Date/Type/Reason Admit Date/Time Aug 07, 2018 at 17:18 Initial Consult Date 08/08/18 Type of Consult id Date/Time of Note DATE: 08/09/18 TIME: 19:00 Exam/Review of Systems Exam Vitals Vital Signs Date Temp Pulse Resp B/P (MAP) Pulse Ox O2 O2 Flow FiO2 Time Delivery Rate 08/09/18 100 60 17:36 08/09/18 93 16:38 08/09/18 98.3 18 105/58 16:00 (74) 08/09/18 Nasal 20.0 01:24 Cannula Intake and Output 08/08/18 08/08/18 08/09/18 1515:00 23:00 07:00 IntakeIntake Total 565 ml 1780 ml BalanceBalance 565 ml 1780 ml Results Result Diagram: 08/09/18 0700 08/09/18 0700 Results 24hrs Laboratory Tests Test 08/09/18 05:00 08/09/18 07:00 Blood Gas Specimen Source Blood arterial Arterial Blood Date Drawn 08/09/2018 5:50:14 AM Arterial Blood pH (Temp corrected) 7.429 Arterial Blood pCO2 (Temp correct) 28.0 L Arterial Blood pO2 (Temp corrected) 93.4 Arterial Blood HCO3 18.1 L Arterial Blood Base Excess -5.1 L Arterial Blood Oxygen Saturation 96.9 Sanchez Test ACCEPTAB Arterial Blood Gas Puncture Site Left Radial Arterial Blood Carboxyhemoglobin 0.2 Arterial Blood Methemoglobin 0.3 Blood Gas A-a O2 Differential 303.6 H Oxyhemoglobin Percent 96.4 Blood Gas Temperature 37.0 Blood Gas Actual Respiration Rate 22 Blood Gas Modality HFNC FiO2 60.0 Blood Gas Notified Whom MA Blood Gas Notified Time 08/09/2018 6:06:24 AM White Blood Count 18.0 #H Red Blood Count 3.45 L Hemoglobin 9.6 L Hematocrit 29.8 L Mean Corpuscular Volume 86.4 Mean Corpuscular Hemoglobin 27.8 L Mean Corpuscular Hemoglobin Concent 32.2 Red Cell Distribution Width 13.2 Platelet Count 405 Mean Platelet Volume 10.3 Immature Granulocytes % 1.600 H Neutrophils % 89.3 H Lymphocytes % 6.1 L Monocytes % 2.8 Eosinophils % 0.0 Basophils % 0.2 Nucleated Red Blood Cells % 0.0 Immature Granulocytes # 0.280 H Neutrophils # 16.1 H Lymphocytes # 1.1 Monocytes # 0.5 Eosinophils # 0.0 Basophils # 0.0 Nucleated Red Blood Cells # 0.0 Sodium Level 141 Potassium Level 4.3 Chloride Level 112 H Carbon Dioxide Level 21 Anion Gap 8 Blood Urea Nitrogen 10 Creatinine 0.54 Est Glomerular Filtrat Rate mL/min > 60 Glucose Level 125 Calcium Level 9.1 Phosphorus Level 3.1 Magnesium Level 2.4 Medications Medication Current Medications Sodium Chloride 1,000 ml @ 40 mls/hr Q24H IV Last administered on 08/09/18at 17:24; Admin Dose 40 MLS/HR; Start 08/07/18 at 17:36 IV Flush (NS 3 ml) 3 ml PER PROTOCOL IV ; Start 08/07/18 at 18:00 Ondansetron HCl (Zofran Inj) 4 mg Q6H PRN IV NAUSEA/VOMITING; Start 08/07/18 at 18:00 Acetaminophen (Tylenol Tab) 650 mg Q6H PRN PO .PAIN 1-3 OR TEMP; Start 08/07/18 at 18:00 Acetaminophen/ Hydrocodone Bitart ([place] (5/325)) 1 tab Q6H PRN PO .PAIN 4-6; Start 08/07/18 at 18:00 Albuterol/ Ipratropium (Duoneb) 3 ml Q6HWA RESP THERAPY HHN Last administered on 08/09/18 14:41; Admin Dose 3 ML; Start 08/07/18 at 20:00 Albuterol/ Ipratropium (Duoneb) 3 ml Q2H RESP THERAPY PRN HHN shortness of breath; Start 08/07/18 at 18:00 Budesonide (Pulmicort (Neb)) 0.5 mg BID RESP THERAPY HHN Last administered on 08/09/18 10:01; Admin Dose 0.5 MG; Start 08/07/18 at 20:00 Methylprednisolone Sodium Succinate (Solu-Medrol) 40 mg Q8 IV Last administered on 08/09/18 13:15; Admin Dose 40 MG; Start 08/07/18 at 22:00 Azithromycin 250 ml @ 250 mls/hr Q24H IVPB Last administered on 08/08/18 18:59; Admin Dose 250 MLS/HR; Start 08/08/18 at 19:00 Cefepime HCl 50 ml @ 100 mls/hr Q12 IVPB Last administered on 08/09/18 09:31; Admin Dose 100 MLS/HR; Start 08/07/18 at 21:00 Fluconazole/ Sodium Chloride 50 ml @ 50 mls/hr Q24H IVPB Last administered on 08/09/18 17:26; Admin Dose 50 MLS/HR; Start 08/07/18 at 18:30 Trimethoprim/ Sulfamethoxazole 15 ml/Dextrose 515 ml @ 343.333 mls/hr Q8 IVPB Last administered on 08/09/18 14:55; Admin Dose 343.333 MLS/HR; Start 08/07/18 at 20:00 Lorazepam (Ativan) 0.5 mg TID PRN PO ANXIETY; Start 08/09/18 at 09:00 Ferric Sodium Gluconate Complex 125 mg/Sodium Chloride 100 ml @ 100 mls/hr DAILY@1300 IVPB Last administered on 08/09/18 13:15; Admin Dose 100 MLS/HR; Start 08/09/18 at 13:00; Stop 08/11/18 at 13:59 Acyclovir (Zovirax) 400 mg BID PO ; Start 08/09/18 at 21:00 YAHIR PARADA NP Aug 09, 2018 19:02
[2018-08-09] MEDS: ACYCLOVIR 400 MG TAB PO SCH (20:25)
[2018-08-10] VITALS (9 sets, daily range): BP systolic 94–104; BP diastolic 50–66; PULSE 68–124; RESP 18–22
[2018-08-10] MEDS: METHYLPREDNISOLONE 40 MG INJ IV SCH ×3 (05:33→20:30)
[2018-08-10] MEDS: TRIMETHOPRIM/SULFAMETHOXAZOLE 15 ML in DEXTROSE 5% 500 ML IVPB SCH ×3 (05:54→21:55)
[2018-08-10] MEDS: CEFEPIME 1GM/50 ML (PMX) 50 ML IVPB SCH ×2 (08:42→20:29)
[2018-08-10] MEDS: ACYCLOVIR 400 MG TAB PO SCH ×2 (08:42→20:30)
[2018-08-10] MEDS: BUDESONIDE (NEB) 0.5MG/2ML AMP HHN SCH ×2 (08:59→19:23)
[2018-08-10] MEDS: ALBUTEROL/IPRATROPIUM (NEB) 3 ML AMP HHN SCH ×3 (08:59→19:23)
--- NOTE | 2018-08-10 10:44 | CONS ---
Assessment/Plan Assessment/Plan Assessment/Plan (Daily) Patient is currently on high flow nasal cannula at 60% FiO2. Assessment and recommendations; 1. patient with history of HIV since admitted with bilateral pneumonia likely PCP. 2. Patient could not handle antiretroviral regimen for 2 months prior to presentation 3. Low CD4 count. 4. Clinically improved on current treatment regimen. Continue current supportive care. Obtain follow-up chest x-ray in 24 hours. Wean down FiO2 as tolerated. Consultation Date/Type/Reason Admit Date/Time Aug 07, 2018 at 17:18 Initial Consult Date 08/08/18 Type of Consult Pulmonary Patient is a 33-year-old lady who came into the hospital yesterday with a few days history of shortness of breath and cough. Upon evaluation a chest x-ray was done which is showing diffuse bilateral pneumonia. Patient also had a CT scan of chest done which is showing similar findings. Patient does have a history of HIV and has been off her antiretroviral regimen for the last 2 months. Patient does have a low CD4 count. By the time I saw her, patient is completely awake and alert and feeling better since admission. Denies any high fever, chills, chest pain, wheezing, complains of scant cough without any sputum production. Also complains of weight loss for the last few weeks. Past medical history; 1. HIV positive as outlined above. Since . 2. Per patient no recent pneumonia. Patient apparently had pneumonia when she was 4 years old. 3. Patient has been off her medication for the last 2 months because of intolerance to medications. Medications; reviewed. Allergies; none. Social history; noncontributory. Family history; noncontributory. Occupational history; patient is on disability. Review of systems; denies any headache, seizures, chest pain, tightness of breath is slightly improved. Denies any sputum production, chills, hemoptysis. Any abdominal pain, nausea vomiting. Any diarrhea. Complains of weight loss and weakness. Denies any skin changes or any arthritis symptoms. Denies any visual changes. General exam; young woman, appears quite emaciated. Awake and alert. Currently in no distress. Date/Time of Note DATE: 08/10/18 TIME: 10:42 24 HR Interval Summary Free Text/Dictation Patient's condition is improving. Complains of very scant cough. Denies any shortness of breath, chest pain, sputum production or wheezing. General exam; young female, awake alert, currently no distress. Exam/Review of Systems Exam Vitals Vital Signs Date Temp Pulse Resp B/P (MAP) Pulse Ox O2 O2 Flow FiO2 Time Delivery Rate 08/10/18 97.6 80 20 100/66 95 08:00 (77) 08/10/18 60 05:49 08/09/18 Nasal 19:40 Cannula 08/09/18 20.0 01:24 Intake and Output 08/09/18 08/09/18 08/10/18 1515:00 23:00 07:00 IntakeIntake Total 665 ml 2030 ml OutputOutput Total 1200 ml BalanceBalance 665 ml 830 ml Exam H EENT exam; supple neck, no JVD. No lymphadenopathy. Midline trachea. No thyromegaly. Pharynx is clear. No pharyngeal thrush. Patient has good dentition. No neck masses. Chest exam; clear to auscultation. S1-S2 audible, no murmurs. Regular rhythm. Abdomen exam; soft, nontender. No organomegaly. Bowel sounds audible. Extremity exam; peripheral edema clubbing. Skin exam; no rash. [employer] exam; no focal deficit. Results Result Diagram: 08/10/18 0609 08/10/18 0609 Results 24hrs Laboratory Tests Test 08/10/18 06:09 White Blood Count 16.1 H Red Blood Count 3.24 L Hemoglobin 9.1 L Hematocrit 28.3 L Mean Corpuscular Volume 87.3 Mean Corpuscular Hemoglobin 28.1 L Mean Corpuscular Hemoglobin Concent 32.2 Red Cell Distribution Width 13.4 Platelet Count 402 Mean Platelet Volume 10.4 Immature Granulocytes % 2.500 H Neutrophils % 88.5 H Lymphocytes % 6.9 L Monocytes % 1.9 Eosinophils % 0.0 Basophils % 0.2 Nucleated Red Blood Cells % 0.2 H Immature Granulocytes # 0.400 H Neutrophils # 14.3 H Lymphocytes # 1.1 Monocytes # 0.3 Eosinophils # 0.0 Basophils # 0.0 Nucleated Red Blood Cells # 0.0 Sodium Level 138 Potassium Level 4.5 Chloride Level 111 H Carbon Dioxide Level 20 L Anion Gap 7 Blood Urea Nitrogen 7 Creatinine 0.58 Est Glomerular Filtrat Rate mL/min > 60 Glucose Level 138 Calcium Level 8.9 Phosphorus Level 3.0 Magnesium Level 2.6 H Medications Medication Current Medications Sodium Chloride 1,000 ml @ 40 mls/hr Q24H IV Last administered on 08/09/18 17:24; Admin Dose 40 MLS/HR; Start 08/07/18 at 17:36 IV Flush (NS 3 ml) 3 ml PER PROTOCOL IV ; Start 08/07/18 at 18:00 Ondansetron HCl (Zofran Inj) 4 mg Q6H PRN IV NAUSEA/VOMITING; Start 08/07/18 at 18:00 Acetaminophen (Tylenol Tab) 650 mg Q6H PRN PO .PAIN 1-3 OR TEMP; Start 08/07/18 at 18:00 Acetaminophen/ Hydrocodone Bitart ([place] (5/325)) 1 tab Q6H PRN PO .PAIN 4-6; Start 08/07/18 at 18:00 Albuterol/ Ipratropium (Duoneb) 3 ml Q6HWA RESP THERAPY HHN Last administered on 08/10/18 08:59; Admin Dose 3 ML; Start 08/07/18 at 20:00 Albuterol/ Ipratropium (Duoneb) 3 ml Q2H RESP THERAPY PRN HHN shortness of breath; Start 08/07/18 at 18:00 Budesonide (Pulmicort (Neb)) 0.5 mg BID RESP THERAPY HHN Last administered on 08/10/18 08:59; Admin Dose 0.5 MG; Start 08/07/18 at 20:00 Methylprednisolone Sodium Succinate (Solu-Medrol) 40 mg Q8 IV Last administered on 08/10/18 05:33; Admin Dose 40 MG; Start 08/07/18 at 22:00 Azithromycin 250 ml @ 250 mls/hr Q24H IVPB Last administered on 08/09/18 19:01; Admin Dose 250 MLS/HR; Start 08/08/18 at 19:00 Cefepime HCl 50 ml @ 100 mls/hr Q12 IVPB Last administered on 08/10/18 08:42; Admin Dose 100 MLS/HR; Start 08/07/18 at 21:00 Fluconazole/ Sodium Chloride 50 ml @ 50 mls/hr Q24H IVPB Last administered on 08/09/18 17:26; Admin Dose 50 MLS/HR; Start 08/07/18 at 18:30 Trimethoprim/ Sulfamethoxazole 15 ml/Dextrose 515 ml @ 343.333 mls/hr Q8 IVPB Last administered on 08/10/18at 05:54; Admin Dose 343.333 MLS/HR; Start 08/07/18 at 20:00 Lorazepam (Ativan) 0.5 mg TID PRN PO ANXIETY Last administered on 08/09/18at 21:43; Admin Dose 0.5 MG; Start 08/09/18 at 09:00 Ferric Sodium Gluconate Complex 125 mg/Sodium Chloride 100 ml @ 100 mls/hr DAILY@1300 IVPB Last administered on 08/09/18at 13:15; Admin Dose 100 MLS/HR; Start 08/09/18 at 13:00; Stop 08/11/18 at 13:59 Acyclovir (Zovirax) 400 mg BID PO Last administered on 08/10/18at 08:42; Admin Dose 400 MG; Start 08/09/18 at 21:00 ARLEN PETERSON Aug 10, 2018 10:44
[2018-08-10] MEDS: SOD FERRIC GLUC COMPLX 125 MG in SOD CHLORIDE 0.9% 100 ML IVPB SCH (12:28)
--- NOTE | 2018-08-10 12:56 | CONS ---
Assessment/Plan Assessment/Plan Hospital Course (Demo Recall) ID PROGRESS NOTE CURRENT ABX: DAY # =>Bactrim IV + Cefepime + Solumedrol * Acyclovir 400 mg twice a day, Zithromax 250 mg daily, fluconazole 100 mg shayna y 08/10/18 0608/10/18 06 HPI REVIEWED * Hx of HIV since admitted with bilateral pneumonia likely PCP. Prior to admission was OFF ARV meds ~60+ days as could not handle antiretroviral regimen po. * CD4# current range 74#-103# w/CD4% @ 8%-10% 24H INTERVAL SUMMARY * A/A/O, VSS, no fevers, high flow oxygen 98% on 60 FiO2 RADIOLOGY/IMAGING: * CT of the chest on admission revealed extensive bilateral consolidations please see full report in the chart MICRO/OTHER * 08/08/18 BCx (-) * 08/08/18 URINE CX (+) VAGINAL CONTAMINATED SAMPLE URINE CULTURE Final Organism 1 LACTOBACILLUS SPECIES COLONY COUNT 50,000 - 60,000 CFU/ml PHYSICAL EXAMINATION: GENERAL: VSS, NAD HEENT: AT, NC, anicteric, NECK: Supple, CHEST: Equal chest rise bilaterally, without dyspnea on observation HEART: Pulse RRR ABDOMEN: Soft : deferred EXTREMITIES: Warm, dry SKIN: No rash, no diaphoresis ID ASSESSMENT 33 yo F admit with: 1. Acute hypoxemic respiratory failure 2. Pneumonia, likely PCP 3. AIDS => HIV(+) since w/inability to tolerate ARV meds * Prior to admission was OFF ARV meds ~60+ days * CD4# current range 74#-103# w/CD4% @ 8%-10% 4. Rheumatoid arthritis 5. Anxiety 6. VIT D deficiency (-)MRSA Nares ABX ALLERGIES: None to ABX INVASIVES: PIV CURRENT ABX: DAY #=> Bactrim IV + Cefepime + Solumedrol * Acyclovir 400 mg twice a day, Zithromax 250 mg daily, fluconazole 100 mg daily ID RECOMMENDATIONS/PLAN: 1. Continue current ABX 2. OFF ARV meds to avoid immune reconstitution syndrome . Consultation Date/Type/Reason Admit Date/Time Aug 07, 2018 at 17:18 Initial Consult Date 08/08/18 Date/Time of Note DATE: 08/10/18 TIME: 12:56 Exam/Review of Systems Exam Vitals Vital Signs Date Temp Pulse Resp B/P (MAP) Pulse Ox O2 O2 Flow FiO2 Time Delivery Rate 08/10/18 98.2 80 20 99/53 (68) 95 12:21 08/10/18 60 05:49 08/09/18 Nasal 19:40 Cannula 08/09/18 20.0 01:24 Intake and Output 08/09/18 08/09/18 08/10/18 1515:00 23:00 07:00 IntakeIntake Total 665 ml 2030 ml OutputOutput Total 1200 ml BalanceBalance 665 ml 830 ml Results Result Diagram: 08/10/18 0609 08/10/18 0609 Results 24hrs Laboratory Tests Test 08/10/18 06:09 White Blood Count 16.1 H Red Blood Count 3.24 L Hemoglobin 9.1 L Hematocrit 28.3 L Mean Corpuscular Volume 87.3 Mean Corpuscular Hemoglobin 28.1 L Mean Corpuscular Hemoglobin Concent 32.2 Red Cell Distribution Width 13.4 Platelet Count 402 Mean Platelet Volume 10.4 Immature Granulocytes % 2.500 H Neutrophils % 88.5 H Lymphocytes % 6.9 L Monocytes % 1.9 Eosinophils % 0.0 Basophils % 0.2 Nucleated Red Blood Cells % 0.2 H Immature Granulocytes # 0.400 H Neutrophils # 14.3 H Lymphocytes # 1.1 Monocytes # 0.3 Eosinophils # 0.0 Basophils # 0.0 Nucleated Red Blood Cells # 0.0 Sodium Level 138 Potassium Level 4.5 Chloride Level 111 H Carbon Dioxide Level 20 L Anion Gap 7 Blood Urea Nitrogen 7 Creatinine 0.58 Est Glomerular Filtrat Rate mL/min > 60 Glucose Level 138 Calcium Level 8.9 Phosphorus Level 3.0 Magnesium Level 2.6 H Medications Medication Current Medications Sodium Chloride 1,000 ml @ 40 mls/hr Q24H IV Last administered on 08/09/18at 17:24; Admin Dose 40 MLS/HR; Start 08/07/18 at 17:36 IV Flush (NS 3 ml) 3 ml PER PROTOCOL IV ; Start 08/07/18 at 18:00 Ondansetron HCl (Zofran Inj) 4 mg Q6H PRN IV NAUSEA/VOMITING; Start 08/07/18 at 18:00 Acetaminophen (Tylenol Tab) 650 mg Q6H PRN PO .PAIN 1-3 OR TEMP; Start 08/07/18 at 18:00 Acetaminophen/ Hydrocodone Bitart ([place] (5/325)) 1 tab Q6H PRN PO .PAIN 4-6; Start 08/07/18 at 18:00 Albuterol/ Ipratropium (Duoneb) 3 ml Q6HWA RESP THERAPY HHN Last administered on 08/10/18 08:59; Admin Dose 3 ML; Start 08/07/18 at 20:00 Albuterol/ Ipratropium (Duoneb) 3 ml Q2H RESP THERAPY PRN HHN shortness of breath; Start 08/07/18 at 18:00 Budesonide (Pulmicort (Neb)) 0.5 mg BID RESP THERAPY HHN Last administered on 08/10/18 08:59; Admin Dose 0.5 MG; Start 08/07/18 at 20:00 Methylprednisolone Sodium Succinate (Solu-Medrol) 40 mg Q8 IV Last administered on 08/10/18 05:33; Admin Dose 40 MG; Start 08/07/18 at 22:00 Azithromycin 250 ml @ 250 mls/hr Q24H IVPB Last administered on 08/09/18 19:01; Admin Dose 250 MLS/HR; Start 08/08/18 at 19:00 Cefepime HCl 50 ml @ 100 mls/hr Q12 IVPB Last administered on 08/10/18 08:42; Admin Dose 100 MLS/HR; Start 08/07/18 at 21:00 Fluconazole/ Sodium Chloride 50 ml @ 50 mls/hr Q24H IVPB Last administered on 08/09/18 17:26; Admin Dose 50 MLS/HR; Start 08/07/18 at 18:30 Trimethoprim/ Sulfamethoxazole 15 ml/Dextrose 515 ml @ 343.333 mls/hr Q8 IVPB Last administered on 08/10/18 05:54; Admin Dose 343.333 MLS/HR; Start 08/07/18 at 20:00 Lorazepam (Ativan) 0.5 mg TID PRN PO ANXIETY Last administered on 08/09/18 21:43; Admin Dose 0.5 MG; Start 08/09/18 at 09:00 Ferric Sodium Gluconate Complex 125 mg/Sodium Chloride 100 ml @ 100 mls/hr DAILY@1300 IVPB Last administered on 08/10/18at 12:28; Admin Dose 100 MLS/HR; Start 08/09/18 at 13:00; Stop 08/11/18 at 13:59 Acyclovir (Zovirax) 400 mg BID PO Last administered on 08/10/18at 08:42; Admin Dose 400 MG; Start 08/09/18 at 21:00 ARUNA CHRISTOPHER NP Aug 10, 2018 12:56
--- NOTE | 2018-08-10 15:33 | PN ---
Date/Time of Note Date/Time of Note DATE: 08/10/18 TIME: 15:32 Objective Vitals Vital Signs Date Temp Pulse Resp B/P (MAP) Pulse Ox O2 O2 Flow FiO2 Time Delivery Rate 08/10/18 98.2 80 20 99/53 (68) 95 12:21 08/10/18 60 05:49 08/09/18 Nasal 19:40 Cannula 08/09/18 20.0 01:24 Intake and Output 08/09/18 08/09/18 08/10/18 1515:00 23:00 07:00 IntakeIntake Total 665 ml 2030 ml OutputOutput Total 1200 ml BalanceBalance 665 ml 830 ml Results Result Diagram: 08/10/18 0609 08/10/18 0609 Medications Medications Current Medications Sodium Chloride 1,000 ml @ 40 mls/hr Q24H IV Last administered on 08/09/18at 17:24; Admin Dose 40 MLS/HR; Start 08/07/18 at 17:36 IV Flush (NS 3 ml) 3 ml PER PROTOCOL IV ; Start 08/07/18 at 18:00 Ondansetron HCl (Zofran Inj) 4 mg Q6H PRN IV NAUSEA/VOMITING; Start 08/07/18 at 18:00 Acetaminophen (Tylenol Tab) 650 mg Q6H PRN PO .PAIN 1-3 OR TEMP; Start 08/07/18 at 18:00 Acetaminophen/ Hydrocodone Bitart ([place] (5/325)) 1 tab Q6H PRN PO .PAIN 4-6; Start 08/07/18 at 18:00 Albuterol/ Ipratropium (Duoneb) 3 ml Q6HWA RESP THERAPY HHN Last administered on 08/10/18at 14:02; Admin Dose 3 ML; Start 08/07/18 at 20:00 Albuterol/ Ipratropium (Duoneb) 3 ml Q2H RESP THERAPY PRN HHN shortness of breath; Start 08/07/18 at 18:00 Budesonide (Pulmicort (Neb)) 0.5 mg BID RESP THERAPY HHN Last administered on 08/10/18at 08:59; Admin Dose 0.5 MG; Start 08/07/18 at 20:00 Methylprednisolone Sodium Succinate (Solu-Medrol) 40 mg Q8 IV Last administered on 08/10/18 14:54; Admin Dose 40 MG; Start 08/07/18 at 22:00 Azithromycin 250 ml @ 250 mls/hr Q24H IVPB Last administered on 08/09/18 19:01; Admin Dose 250 MLS/HR; Start 08/08/18 at 19:00 Cefepime HCl 50 ml @ 100 mls/hr Q12 IVPB Last administered on 08/10/18 08:42; Admin Dose 100 MLS/HR; Start 08/07/18 at 21:00 Fluconazole/ Sodium Chloride 50 ml @ 50 mls/hr Q24H IVPB Last administered on 08/09/18 17:26; Admin Dose 50 MLS/HR; Start 08/07/18 at 18:30 Trimethoprim/ Sulfamethoxazole 15 ml/Dextrose 515 ml @ 343.333 mls/hr Q8 IVPB Last administered on 08/10/18 14:59; Admin Dose 343.333 MLS/HR; Start 08/07/18 at 20:00 Lorazepam (Ativan) 0.5 mg TID PRN PO ANXIETY Last administered on 08/09/18 21:43; Admin Dose 0.5 MG; Start 08/09/18 at 09:00 Ferric Sodium Gluconate Complex 125 mg/Sodium Chloride 100 ml @ 100 mls/hr DAILY@1300 IVPB Last administered on 08/10/18 12:28; Admin Dose 100 MLS/HR; Start 08/09/18 at 13:00; Stop 08/11/18 at 13:59 Acyclovir (Zovirax) 400 mg BID PO Last administered on 08/10/18 08:42; Admin Dose 400 MG; Start 08/09/18 at 21:00 VTE Prophylaxis Risk score (from Nsg)>0 risk: 3 SCD applied (from Nsg): Yes Lines/Catheters IV Catheter Type: Styles in Place: No Assessment/Plan Hospital Course Subjective Patient feeling much better however still on high flow Objective Physical exam General: Patient is laying in bed and answers questions appropriately Mentation: Patient is alert and oriented 4, Head: Normocephalic atraumatic Eyes: EOMI, pupils reactive to light Neck: Supple, nontender, midline Respiratory: Coarse to auscultation bilaterally Cardiovascular: regular rate, no obvious murmurs Gastrointestinal: non-tender to palpation, bowel sounds heard. Neurological: Moves all extremities spontaneously Skin: No new skin lesions Assessment and plan Sepsis secondary to pneumonia, resolving -Cultures -IV antibiotic -IV fluid stopped Acute hypoxic respiratory distress -Secondary to multifocal pneumonia -Treatment as per pneumonia Multifocal pneumonia, possible PCP pneumonia -Patient is immunocompromised, will treat for PCP pneumonia versus other possible opportunistic infections -IV Bactrim, IV cefepime, IV azithromycin, IV fluconazole, acyclovir due to immune compromise status, last CD4 count was in the 60s done last week per patient, documents at bedside -Steroids -Nebulizers, DuoNeb and budesonide -On high flow nasal cannula -QuantiFERON ordered, -CT chest with IV contrast noted -Hematology on board as well as infectious disease HIV -Last CD4 count done a week ago is 64, will repeat here with viral count as well -Noncompliant for the past 2 months, did start a new regimen 1 week ago. -Infectious disease consulted Fever, resolved -Secondary to above sepsis and pneumonia -Tylenol as needed Tachycardia, resolving -Secondary to above sepsis pneumonia -EKG noted Hypertensive urgency -Now within normal limits -Monitor closely Disposition -, IV antibiotic, treatment for multifocal pneumonia, STEPHANIE COLÓN Aug 10, 2018 15:33
[2018-08-10] MEDS: FLUCONAZOLE 100 MG/50 ML (PMX) 50 ML IVPB SCH (17:35)
[2018-08-10] MEDS: AZITHROMYCIN 500MG/NS (PMX) 250 ML IVPB SCH (18:42)
[2018-08-11] VITALS (14 sets, daily range): BP systolic 90–104; BP diastolic 50–58; PULSE 52–144; RESP 20–22
[2018-08-11] MEDS: METHYLPREDNISOLONE 40 MG INJ IV SCH ×2 (05:32→20:51)
[2018-08-11] MEDS: TRIMETHOPRIM/SULFAMETHOXAZOLE 15 ML in DEXTROSE 5% 500 ML IVPB SCH ×3 (05:33→22:25)
[2018-08-11] MEDS: ALBUTEROL/IPRATROPIUM (NEB) 3 ML AMP HHN SCH ×3 (08:04→21:26)
[2018-08-11] MEDS: BUDESONIDE (NEB) 0.5MG/2ML AMP HHN SCH ×2 (08:04→21:25)
[2018-08-11] MEDS: ACYCLOVIR 400 MG TAB PO SCH ×2 (08:39→20:51)
[2018-08-11] MEDS: CEFEPIME 1GM/50 ML (PMX) 50 ML IVPB SCH ×2 (08:40→20:51)
--- NOTE | 2018-08-11 11:47 | CONS ---
Assessment/Plan Assessment/Plan Assessment/Plan (Daily) Assessment and recommendations; 1. Patient admitted with bilateral pneumonia likely PCP. 2. HIV since . Patient had stopped using antiretroviral regimen 2 months prior to presentation due to intolerance. 3. Low CD4 count. Continue current supportive care. Chest x-ray is pending from today. Further recommendations once chest x-ray is obtained. Consultation Date/Type/Reason Admit Date/Time Aug 07, 2018 at 17:18 Initial Consult Date 08/08/18 Type of Consult Pulmonary Patient is a 33-year-old lady who came into the hospital yesterday with a few days history of shortness of breath and cough. Upon evaluation a chest x-ray was done which is showing diffuse bilateral pneumonia. Patient also had a CT scan of chest done which is showing similar findings. Patient does have a history of HIV and has been off her antiretroviral regimen for the last 2 months. Patient does have a low CD4 count. By the time I saw her, patient is completely awake and alert and feeling better since admission. Denies any high fever, chills, chest pain, wheezing, complains of scant cough without any sputum production. Also complains of weight loss for the last few weeks. Past medical history; 1. HIV positive as outlined above. Since . 2. Per patient no recent pneumonia. Patient apparently had pneumonia when she was 4 years old. 3. Patient has been off her medication for the last 2 months because of intolerance to medications. Medications; reviewed. Allergies; none. Social history; noncontributory. Family history; noncontributory. Occupational history; patient is on disability. Review of systems; denies any headache, seizures, chest pain, tightness of breath is slightly improved. Denies any sputum production, chills, hemoptysis. Any abdominal pain, nausea vomiting. Any diarrhea. Complains of weight loss and weakness. Denies any skin changes or any arthritis symptoms. Denies any visual changes. General exam; young woman, appears quite emaciated. Awake and alert. Currently in no distress. Date/Time of Note DATE: 08/11/18 TIME: 11:46 24 HR Interval Summary Free Text/Dictation Patient's condition is stable. Reports continually improving shortness of breath. Complains of very scant cough. General exam; young female, awake alert, currently in no distress. H EENT exam; supple neck, no JVD. No lymphadenopathy. Midline trachea. No t hyromegaly. No pharyngeal thrush. Patient has good dentition. Chest exam; clear to auscultation. S1-S2 audible, no murmurs. Regular rhythm. Abdomen exam; soft, nontender. Bowel sounds audible. Extremity exam; peripheral edema clubbing. GRADES 9 [employer] 12 [employer] exam; no focal deficit. Exam/Review of Systems Exam Vitals Vital Signs Date Temp Pulse Resp B/P (MAP) Pulse Ox O2 O2 Flow FiO2 Time Delivery Rate 08/11/18 97.6 76 20 104/55 97 11:06 (71) 08/11/18 Nasal 08:30 Cannula 08/11/18 40 08:16 08/09/18 20.0 01:24 Intake and Output 08/10/18 08/10/18 08/11/18 1515:00 23:00 07:00 IntakeIntake Total 3160 ml 765 ml OutputOutput Total 1000 ml BalanceBalance 2160 ml 765 ml Results Result Diagram: 08/11/18 0529 08/11/18 0529 Results 24hrs Laboratory Tests Test 08/11/18 05:29 White Blood Count 14.1 H Red Blood Count 3.33 L Hemoglobin 9.4 L Hematocrit 29.5 L Mean Corpuscular Volume 88.6 Mean Corpuscular Hemoglobin 28.2 L Mean Corpuscular Hemoglobin Concent 31.9 L Red Cell Distribution Width 13.6 Platelet Count 410 Mean Platelet Volume 10.3 Immature Granulocytes % 5.000 H Neutrophils % 85.0 H Lymphocytes % 6.5 L Monocytes % 3.1 Eosinophils % 0.0 Basophils % 0.4 Nucleated Red Blood Cells % 0.4 H Immature Granulocytes # 0.700 H Neutrophils # 12.0 H Lymphocytes # 0.9 Monocytes # 0.4 Eosinophils # 0.0 Basophils # 0.1 Nucleated Red Blood Cells # 0.1 H Sodium Level 138 Potassium Level 5.1 Chloride Level 109 Carbon Dioxide Level 24 Anion Gap 5 Blood Urea Nitrogen 6 L Creatinine 0.54 Est Glomerular Filtrat Rate mL/min > 60 Glucose Level 111 Calcium Level 9.3 Phosphorus Level 2.9 Magnesium Level 2.8 H Medications Medication Current Medications IV Flush (NS 3 ml) 3 ml PER PROTOCOL IV ; Start 08/07/18 at 18:00 Ondansetron HCl (Zofran Inj) 4 mg Q6H PRN IV NAUSEA/VOMITING; Start 08/07/18 at 18:00 Acetaminophen (Tylenol Tab) 650 mg Q6H PRN PO .PAIN 1-3 OR TEMP; Start 08/07/18 at 18:00 Acetaminophen/ Hydrocodone Bitart ([place] (5/325)) 1 tab Q6H PRN PO .PAIN 4-6; Start 08/07/18 at 18:00 Albuterol/ Ipratropium (Duoneb) 3 ml Q6HWA RESP THERAPY HHN Last administered on 08/11/18 08:04; Admin Dose 3 ML; Start 08/07/18 at 20:00 Albuterol/ Ipratropium (Duoneb) 3 ml Q2H RESP THERAPY PRN HHN shortness of breath; Start 08/07/18 at 18:00 Budesonide (Pulmicort (Neb)) 0.5 mg BID RESP THERAPY HHN Last administered on 08/11/18 08:04; Admin Dose 0.5 MG; Start 08/07/18 at 20:00 Methylprednisolone Sodium Succinate (Solu-Medrol) 40 mg Q8 IV Last administered on 08/11/18 05:32; Admin Dose 40 MG; Start 08/07/18 at 22:00 Azithromycin 250 ml @ 250 mls/hr Q24H IVPB Last administered on 08/10/18 18:42; Admin Dose 250 MLS/HR; Start 08/08/18 at 19:00 Cefepime HCl 50 ml @ 100 mls/hr Q12 IVPB Last administered on 08/11/18 08:40; Admin Dose 100 MLS/HR; Start 08/07/18 at 21:00 Fluconazole/ Sodium Chloride 50 ml @ 50 mls/hr Q24H IVPB Last administered on 08/10/18 17:35; Admin Dose 50 MLS/HR; Start 08/07/18 at 18:30 Trimethoprim/ Sulfamethoxazole 15 ml/Dextrose 515 ml @ 343.333 mls/hr Q8 IVPB Last administered on 08/11/18 05:33; Admin Dose 343.333 MLS/HR; Start 08/07/18 at 20:00 Lorazepam (Ativan) 0.5 mg TID PRN PO ANXIETY Last administered on 08/09/18 21:43; Admin Dose 0.5 MG; Start 08/09/18 at 09:00 Ferric Sodium Gluconate Complex 125 mg/Sodium Chloride 100 ml @ 100 mls/hr DAILY@1300 IVPB Last administered on 08/10/18at 12:28; Admin Dose 100 MLS/HR; Start 08/09/18 at 13:00; Stop 08/11/18 at 13:59 Acyclovir (Zovirax) 400 mg BID PO Last administered on 08/11/18at 08:39; Admin Dose 400 MG; Start 08/09/18 at 21:00 ARLEN PETERSON Aug 11, 2018 11:47
--- NOTE | 2018-08-11 12:48 | PN ---
Date/Time of Note Date/Time of Note DATE: 08/11/18 TIME: 12:45 Objective Vitals Vital Signs Date Temp Pulse Resp B/P (MAP) Pulse Ox O2 O2 Flow FiO2 Time Delivery Rate 08/11/18 97.6 76 20 104/55 97 11:06 (71) 08/11/18 Nasal 08:30 Cannula 08/11/18 40 08:16 08/09/18 20.0 01:24 Intake and Output 08/10/18 08/10/18 08/11/18 1515:00 23:00 07:00 IntakeIntake Total 3160 ml 765 ml OutputOutput Total 1000 ml BalanceBalance 2160 ml 765 ml Results Result Diagram: 08/11/1852808/11/18528 Medications Medications Current Medications IV Flush (NS 3 ml) 3 ml PER PROTOCOL IV ; Start 08/07/18 at 18:00 Ondansetron HCl (Zofran Inj) 4 mg Q6H PRN IV NAUSEA/VOMITING; Start 08/07/18 at 18:00 Acetaminophen (Tylenol Tab) 650 mg Q6H PRN PO .PAIN 1-3 OR TEMP; Start 08/07/18 at 18:00 Acetaminophen/ Hydrocodone Bitart ([place] (5/325)) 1 tab Q6H PRN PO .PAIN 4-6; Start 08/07/18 at 18:00 Albuterol/ Ipratropium (Duoneb) 3 ml Q6HWA RESP THERAPY HHN Last administered on 08/11/18at 08:04; Admin Dose 3 ML; Start 08/07/18 at 20:00 Albuterol/ Ipratropium (Duoneb) 3 ml Q2H RESP THERAPY PRN HHN shortness of breath; Start 08/07/18 at 18:00 Budesonide (Pulmicort (Neb)) 0.5 mg BID RESP THERAPY HHN Last administered on 08/11/18at 08:04; Admin Dose 0.5 MG; Start 08/07/18 at 20:00 Methylprednisolone Sodium Succinate (Solu-Medrol) 40 mg Q8 IV Last administered on 08/11/18at 05:32; Admin Dose 40 MG; Start 08/07/18 at 22:00 Azithromycin 250 ml @ 250 mls/hr Q24H IVPB Last administered on 6/8/19at 18:42; Admin Dose 250 MLS/HR; Start 08/08/18 at 19:00 Cefepime HCl 50 ml @ 100 mls/hr Q12 IVPB Last administered on 08/11/18 08:40; Admin Dose 100 MLS/HR; Start 08/07/18 at 21:00 Fluconazole/ Sodium Chloride 50 ml @ 50 mls/hr Q24H IVPB Last administered on 08/10/18 17:35; Admin Dose 50 MLS/HR; Start 08/07/18 at 18:30 Trimethoprim/ Sulfamethoxazole 15 ml/Dextrose 515 ml @ 343.333 mls/hr Q8 IVPB Last administered on 08/11/18 05:33; Admin Dose 343.333 MLS/HR; Start 08/07/18 at 20:00 Lorazepam (Ativan) 0.5 mg TID PRN PO ANXIETY Last administered on 08/09/18 21:43; Admin Dose 0.5 MG; Start 08/09/18 at 09:00 Ferric Sodium Gluconate Complex 125 mg/Sodium Chloride 100 ml @ 100 mls/hr DAILY@1300 IVPB Last administered on 08/10/18 12:28; Admin Dose 100 MLS/HR; Start 08/09/18 at 13:00; Stop 08/11/18 at 13:59 Acyclovir (Zovirax) 400 mg BID PO Last administered on 08/11/18 08:39; Admin Dose 400 MG; Start 08/09/18 at 21:00 VTE Prophylaxis Risk score (from Ns)>0 risk: 3 SCD applied (from Ns): Yes Lines/Catheters IV Catheter Type: Styles in Place: No Assessment/Plan Hospital Course Subjective Patient feeling well, now off high flow Objective Physical exam General: Patient is laying in bed and answers questions appropriately Mentation: Patient is alert and oriented 4, Head: Normocephalic atraumatic Eyes: EOMI, pupils reactive to light Neck: Supple, nontender, midline Respiratory: Coarse to auscultation bilaterally Cardiovascular: regular rate, no obvious murmurs Gastrointestinal: non-tender to palpation, bowel sounds heard. Neurological: Moves all extremities spontaneously Skin: No new skin lesions Assessment and plan Sepsis secondary to pneumonia, resolving -Cultures -IV antibiotic -IV fluid stopped Acute hypoxic respiratory distress -Secondary to multifocal pneumonia -Treatment as per pneumonia -Resolving, now off high flow Multifocal pneumonia, possible PCP pneumonia -Patient is immunocompromised, will treat for PCP pneumonia versus other possible opportunistic infections -IV Bactrim, IV cefepime, IV azithromycin, IV fluconazole, acyclovir due to immune compromise status, CD4 count noted, still hovering around 100 -Steroids, taper when able -Nebulizers, DuoNeb and budesonide -On high flow nasal cannula -QuantiFERON ordered, -CT chest with IV contrast noted -Hematology on board as well as infectious disease HIV -Last CD4 count done a week ago is 64, will repeat here with viral count as well, still pending viral count, repeat CD4 is around 75-100 -Noncompliant for the past 2 months, did start a new regimen 1 week ago. -Infectious disease consulted Fever, resolved -Secondary to above sepsis and pneumonia -Tylenol as needed Tachycardia, resolving -Secondary to above sepsis pneumonia -EKG noted Hypertensive urgency -Now within normal limits -Monitor closely Disposition -IV antibiotic, treatment for multifocal pneumonia, likely pcp pna STEPHANIE COLÓN Aug 11, 2018 12:48
[2018-08-11] MEDS: SOD FERRIC GLUC COMPLX 125 MG in SOD CHLORIDE 0.9% 100 ML IVPB SCH (12:50)
--- NOTE | 2018-08-11 16:00 | CONS ---
Assessment/Plan Assessment/Plan Hospital Course (Demo Recall) ID PROGRESS NOTE CURRENT ABX: DAY # =>Bactrim IV + Cefepime + Solumedrol * Acyclovir 400 mg twice a day, Zithromax 250 mg daily, fluconazole 100 mg shayna y HPI REVIEWED * Hx of HIV since admitted with bilateral pneumonia likely PCP. Prior to admission was OFF ARV meds ~60+ days as could not handle antiretroviral regimen po. * CD4# current range 74#-103# w/CD4% @ 8%-10% 24H INTERVAL SUMMARY * Stable on current ABX -- she doesn't remember the name of her new ARV med, she did not tolerate Triumeq and has a new ARV med at home. Advised her she will need to bring it in and restart after she has been on current ABX x 14 days to avoid immune reconstitution syndrome. * A/A/O, VSS, no fevers, high flow oxygen 98% on 60 FiO2 RADIOLOGY/IMAGING: * 08/10/18 CXR: 1. Air space opacification previously seen at the lateral aspect of the upper lung zones has been replaced with interstitial infiltrate. Discoid atelectasis is seen at the left lung base. No effusion or pneumothorax is evident.2. The cardiovascular silhouette is stable and unremarkable. * CT of the chest on admission revealed extensive bilateral consolidations please see full report in the chart MICRO/OTHER * 08/08/18 BCx (-) * 08/08/18 URINE CX (+) VAGINAL CONTAMINATED SAMPLE URINE CULTURE Final Organism 1 LACTOBACILLUS SPECIES COLONY COUNT 50,000 - 60,000 CFU/ml PHYSICAL EXAMINATION: GENERAL: VSS, NAD HEENT: AT, NC, anicteric, NECK: Supple, CHEST: Equal chest rise bilaterally, without dyspnea on observation HEART: Pulse RRR ABDOMEN: Soft : deferred EXTREMITIES: Warm, dry SKIN: No rash, no diaphoresis ID ASSESSMENT 33 yo F admit with: 1. Acute hypoxemic respiratory failure 2. Pneumonia, likely PCP 3. AIDS => HIV(+) since w/inability to tolerate ARV meds * Prior to admission was OFF ARV meds ~60+ days * CD4# current range 74#-103# w/CD4% @ 8%-10% 4. Rheumatoid arthritis 5. Anxiety 6. VIT D deficiency (-)MRSA Nares ABX ALLERGIES: None to ABX INVASIVES: PIV CURRENT ABX: DAY #=> Bactrim IV + Cefepime + Solumedrol * Acyclovir 400 mg twice a day, Zithromax 250 mg daily, fluconazole 100 mg daily ID RECOMMENDATIONS/PLAN: 1. Continue current ABX 2. OFF ARV meds to avoid immune reconstitution syndrome * She doesn't remember the name of her new ARV med, she did not tolerate Triumeq and has a new ARV med at home. Advised her she will need to bring it in and restart after she has been on current ABX x 14 days to avoid immune reconstitution syndrome. . Consultation Date/Type/Reason Admit Date/Time Aug 07, 2018 at 17:18 Initial Consult Date 08/08/18 Date/Time of Note DATE: 08/11/18 TIME: 15:55 Exam/Review of Systems Exam Vitals Vital Signs Date Temp Pulse Resp B/P (MAP) Pulse Ox O2 O2 Flow FiO2 Time Delivery Rate 08/11/18 97.6 84 20 95/52 (66) 99 15:08 08/11/18 Nasal 2.0 28 13:18 Cannula Intake and Output 08/10/18 08/10/18 08/11/18 1515:00 23:00 07:00 IntakeIntake Total 3160 ml 765 ml OutputOutput Total 1000 ml BalanceBalance 2160 ml 765 ml Results Result Diagram: 08/11/18 0529 08/11/18 0529 Results 24hrs Laboratory Tests Test 08/11/18 05:29 White Blood Count 14.1 H Red Blood Count 3.33 L Hemoglobin 9.4 L Hematocrit 29.5 L Mean Corpuscular Volume 88.6 Mean Corpuscular Hemoglobin 28.2 L Mean Corpuscular Hemoglobin Concent 31.9 L Red Cell Distribution Width 13.6 Platelet Count 410 Mean Platelet Volume 10.3 Immature Granulocytes % 5.000 H Neutrophils % 85.0 H Lymphocytes % 6.5 L Monocytes % 3.1 Eosinophils % 0.0 Basophils % 0.4 Nucleated Red Blood Cells % 0.4 H Immature Granulocytes # 0.700 H Neutrophils # 12.0 H Lymphocytes # 0.9 Monocytes # 0.4 Eosinophils # 0.0 Basophils # 0.1 Nucleated Red Blood Cells # 0.1 H Sodium Level 138 Potassium Level 5.1 Chloride Level 109 Carbon Dioxide Level 24 Anion Gap 5 Blood Urea Nitrogen 6 L Creatinine 0.54 Est Glomerular Filtrat Rate mL/min > 60 Glucose Level 111 Calcium Level 9.3 Phosphorus Level 2.9 Magnesium Level 2.8 H Medications Medication Current Medications IV Flush (NS 3 ml) 3 ml PER PROTOCOL IV ; Start 08/07/18 at 18:00 Ondansetron HCl (Zofran Inj) 4 mg Q6H PRN IV NAUSEA/VOMITING; Start 08/07/18 at 18:00 Acetaminophen (Tylenol Tab) 650 mg Q6H PRN PO .PAIN 1-3 OR TEMP; Start 08/07/18 at 18:00 Acetaminophen/ Hydrocodone Bitart ([place] (5/325)) 1 tab Q6H PRN PO .PAIN 4-6; Start 08/07/18 at 18:00 Albuterol/ Ipratropium (Duoneb) 3 ml Q6HWA RESP THERAPY HHN Last administered on 08/11/18 13:16; Admin Dose 3 ML; Start 08/07/18 at 20:00 Albuterol/ Ipratropium (Duoneb) 3 ml Q2H RESP THERAPY PRN HHN shortness of breath; Start 08/07/18 at 18:00 Budesonide (Pulmicort (Neb)) 0.5 mg BID RESP THERAPY HHN Last administered on 08/11/18 08:04; Admin Dose 0.5 MG; Start 08/07/18 at 20:00 Azithromycin 250 ml @ 250 mls/hr Q24H IVPB Last administered on 08/10/18 18:42; Admin Dose 250 MLS/HR; Start 08/08/18 at 19:00 Cefepime HCl 50 ml @ 100 mls/hr Q12 IVPB Last administered on 08/11/18 08:40; Admin Dose 100 MLS/HR; Start 08/07/18 at 21:00 Fluconazole/ Sodium Chloride 50 ml @ 50 mls/hr Q24H IVPB Last administered on 08/10/18 17:35; Admin Dose 50 MLS/HR; Start 08/07/18 at 18:30 Trimethoprim/ Sulfamethoxazole 15 ml/Dextrose 515 ml @ 343.333 mls/hr Q8 IVPB Last administered on 08/11/18 13:49; Admin Dose 343.333 MLS/HR; Start 08/07/18 at 20:00 Lorazepam (Ativan) 0.5 mg TID PRN PO ANXIETY Last administered on 08/09/18at 21:43; Admin Dose 0.5 MG; Start 08/09/18 at 09:00 Acyclovir (Zovirax) 400 mg BID PO Last administered on 08/11/18at 08:39; Admin Dose 400 MG; Start 08/09/18 at 21:00 Methylprednisolone Sodium Succinate (Solu-Medrol) 40 mg Q12 IV ; Start 08/11/18 at 21:00 ARUNA CHRISTOPHER NP Aug 11, 2018 16:00
[2018-08-11] MEDS: FLUCONAZOLE 100 MG/50 ML (PMX) 50 ML IVPB SCH (17:54)
[2018-08-11] MEDS: AZITHROMYCIN 500MG/NS (PMX) 250 ML IVPB SCH (18:56)
[2018-08-12] VITALS (11 sets, daily range): BP systolic 92–113; BP diastolic 53–62; PULSE 62–103; RESP 18–20
[2018-08-12] MEDS: TRIMETHOPRIM/SULFAMETHOXAZOLE 15 ML in DEXTROSE 5% 500 ML IVPB SCH ×3 (05:32→23:15)
[2018-08-12] MEDS: ALBUTEROL/IPRATROPIUM (NEB) 3 ML AMP HHN SCH ×3 (08:05→23:17)
[2018-08-12] MEDS: CEFEPIME 1GM/50 ML (PMX) 50 ML IVPB SCH ×2 (08:35→20:46)
[2018-08-12] MEDS: ACYCLOVIR 400 MG TAB PO SCH ×2 (08:35→20:46)
[2018-08-12] MEDS: METHYLPREDNISOLONE 40 MG INJ IV SCH ×2 (08:35→20:46)
[2018-08-12] MEDS: BUDESONIDE (NEB) 0.5MG/2ML AMP HHN SCH ×2 (09:28→23:05)
--- NOTE | 2018-08-12 11:47 | CONS ---
Assessment/Plan Assessment/Plan Assessment/Plan (Daily) Chest x-ray showing marked improvement in bilateral pneumonia. Assessment and recommendations; 1. Patient with history of HIV since admitted with severe bilateral pneumonia likely PCP in etiology with marked overall clinical improvement on current treatment regimen. 2. Low CD4 count on admission. Patient unable to handle anti-retroviral regimen. Continue current supportive care. Steroid taper in 24 hours. Antibiotics per ID recommendations. Consultation Date/Type/Reason Admit Date/Time Aug 07, 2018 at 17:18 Initial Consult Date 08/08/18 Type of Consult Pulmonary Patient is a 33-year-old lady who came into the hospital yesterday with a few days history of shortness of breath and cough. Upon evaluation a chest x-ray was done which is showing diffuse bilateral pneumonia. Patient also had a CT scan of chest done which is showing similar findings. Patient does have a history of HIV and has been off her antiretroviral regimen for the last 2 months. Patient does have a low CD4 count. By the time I saw her, patient is completely awake and alert and feeling better since admission. Denies any high fever, chills, chest pain, wheezing, complains of scant cough without any sputum production. Also complains of weight loss for the last few weeks. Past medical history; 1. HIV positive as outlined above. Since . 2. Per patient no recent pneumonia. Patient apparently had pneumonia when she was 4 years old. 3. Patient has been off her medication for the last 2 months because of intolerance to medications. Medications; reviewed. Allergies; none. Social history; noncontributory. Family history; noncontributory. Occupational history; patient is on disability. Review of systems; denies any headache, seizures, chest pain, tightness of breath is slightly improved. Denies any sputum production, chills, hemoptysis. Any abdominal pain, nausea vomiting. Any diarrhea. Complains of weight loss and weakness. Denies any skin changes or any arthritis symptoms. Denies any visual changes. General exam; young woman, appears quite emaciated. Awake and alert. Currently in no distress. Date/Time of Note DATE: 08/12/18 TIME: 11:46 24 HR Interval Summary Free Text/Dictation Patient's condition is stable. Denies any shortness of breath, coughing, wheezing, sputum production. General exam; young lady, awake alert, currently no distress. Exam/Review of Systems Exam Vitals Vital Signs Date Temp Pulse Resp B/P (MAP) Pulse Ox O2 O2 Flow FiO2 Time Delivery Rate 08/12/18 98.3 85 20 103/56 98 11:02 (72) 08/12/18 3.0 09:32 08/12/18 Nasal 09:31 Cannula 08/12/18 31 02:35 Intake and Output 08/11/18 08/11/18 08/12/18 1515:00 23:00 07:00 IntakeIntake Total 150 ml 2300 ml 1015 ml BalanceBalance 150 ml 2300 ml 1015 ml Exam H EENT exam; supple neck, no JVD. No lymphadenopathy. Midline trachea. No thyromegaly. Patient has good dentition. No oral thrush. Chest exam; clear to auscultation. S1-S2 audible, no murmurs. Regular rhythm. Abdomen exam; soft, nontender. No organomegaly. Bowel sounds audible. Extremity exam; no peripheral edema clubbing. MISSILEMAN exam; no focal deficit. Results Result Diagram: 08/12/18 0613 08/12/18 0613 Results 24hrs Laboratory Tests Test 08/12/18 06:13 White Blood Count 15.3 H Red Blood Count 3.30 L Hemoglobin 9.5 L Hematocrit 29.4 L Mean Corpuscular Volume 89.1 Mean Corpuscular Hemoglobin 28.8 L Mean Corpuscular Hemoglobin Concent 32.3 Red Cell Distribution Width 13.8 Platelet Count 435 H Mean Platelet Volume 10.1 Immature Granulocytes % 7.700 H Neutrophils % Segmented Neutrophils % (Manual) 84 H Band Neutrophils % (Manual) 3 Lymphocytes % Lymphocytes % (Manual) 7 L Monocytes % Monocytes % (Manual) 3 Eosinophils % Basophils % Metamyelocytes % (manual) 2 H Myelocytes % (Manual) 1 H Nucleated Red Blood Cells % 1 H Immature Granulocytes # 1.180 H Neutrophils # Neutrophils # (Manual) 12.9 H Band Neutrophils # 0.4 Lymphocytes (Manual) 1.0 Lymphocytes # Monocytes # Monocytes # (Manual) 0.4 Eosinophils # Basophils # Metamyelocytes # 0.3 H Myelocytes # 0.1 H Nucleated Red Blood Cells # Platelet Estimate NORMAL Giant Platelets 4 H Polychromasia 2+ Poikilocytosis 1+ Anisocytosis 1+ Ovalocytes 1+ Sodium Level 136 Potassium Level 5.1 Chloride Level 106 Carbon Dioxide Level 23 Anion Gap 7 Blood Urea Nitrogen 7 Creatinine 0.79 Est Glomerular Filtrat Rate mL/min > 60 Glucose Level 205 Calcium Level 9.9 Phosphorus Level 3.0 Magnesium Level 2.4 Medications Medication Current Medications IV Flush (NS 3 ml) 3 ml PER PROTOCOL IV ; Start 08/07/18 at 18:00 Ondansetron HCl (Zofran Inj) 4 mg Q6H PRN IV NAUSEA/VOMITING; Start 08/07/18 at 18:00 Acetaminophen (Tylenol Tab) 650 mg Q6H PRN PO .PAIN 1-3 OR TEMP; Start 08/07/18 at 18:00 Acetaminophen/ Hydrocodone Bitart ([place] (5/325)) 1 tab Q6H PRN PO .PAIN 4-6; Start 08/07/18 at 18:00 Albuterol/ Ipratropium (Duoneb) 3 ml Q6HWA RESP THERAPY HHN Last administered on 08/12/18 08:05; Admin Dose 3 ML; Start 08/07/18 at 20:00 Albuterol/ Ipratropium (Duoneb) 3 ml Q2H RESP THERAPY PRN HHN shortness of breath; Start 08/07/18 at 18:00 Budesonide (Pulmicort (Neb)) 0.5 mg BID RESP THERAPY HHN Last administered on 08/12/18 09:28; Admin Dose 0.5 MG; Start 08/07/18 at 20:00 Azithromycin 250 ml @ 250 mls/hr Q24H IVPB Last administered on 08/11/18 18:56; Admin Dose 250 MLS/HR; Start 08/08/18 at 19:00 Cefepime HCl 50 ml @ 100 mls/hr Q12 IVPB Last administered on 08/12/18 08:35; Admin Dose 100 MLS/HR; Start 08/07/18 at 21:00 Fluconazole/ Sodium Chloride 50 ml @ 50 mls/hr Q24H IVPB Last administered on 08/11/18 17:54; Admin Dose 50 MLS/HR; Start 08/07/18 at 18:30 Trimethoprim/ Sulfamethoxazole 15 ml/Dextrose 515 ml @ 343.333 mls/hr Q8 IVPB Last administered on 08/12/18 05:32; Admin Dose 343.333 MLS/HR; Start 08/07/18 at 20:00 Lorazepam (Ativan) 0.5 mg TID PRN PO ANXIETY Last administered on 08/09/18at 21:43; Admin Dose 0.5 MG; Start 08/09/18 at 09:00 Acyclovir (Zovirax) 400 mg BID PO Last administered on 08/12/18at 08:35; Admin Dose 400 MG; Start 08/09/18 at 21:00 Methylprednisolone Sodium Succinate (Solu-Medrol) 40 mg Q12 IV Last administered on 08/12/18at 08:35; Admin Dose 40 MG; Start 08/11/18 at 21:00 ARLEN PETERSON Aug 12, 2018 11:47
--- NOTE | 2018-08-12 14:32 | CONS ---
Assessment/Plan Assessment/Plan Hospital Course (Demo Recall) Patient is alert feels much better she is comfortable on 3 L nasal cannula, no fevers overnight. WBC 15.3 BUN 7 creatinine 0.79 CD4 count 74 Antimicrobials: Acyclovir 400 mg twice a day, Zithromax 250 mg daily, cefepime 1 g IV every 12 hours, Bactrim 15 mg/kg IV every 8 hours, fluconazole 100 mg daily, Solu-Medrol CT of the chest on admission revealed extensive bilateral consolidations please see full report in the chart Antimicrobials: Zithromax cefepime IV Bactrim fluconazole, Solu-Medrol Physical examination: Well-developed thin middle-aged woman who is alert in no distress. Head atraumatic normocephalic sclera nonicteric vehicle mucosa dry neck is supple chest rise symmetrical breath sounds with scattered rhonchi heart S1-S2 abdomen soft bowel sounds present extremities without cyanosis edema Assessment: 1. Acute hypoxemic respiratory failure 2. Pneumonia, likely PCP 3. AIDS Plan: Overall improving, continue present care antibiotics, follow pulmonary recommendations Consultation Date/Type/Reason Admit Date/Time Aug 07, 2018 at 17:18 Initial Consult Date 08/08/18 Type of Consult id Date/Time of Note DATE: 08/12/18 TIME: 14:31 Exam/Review of Systems Exam Vitals Vital Signs Date Temp Pulse Resp B/P (MAP) Pulse Ox O2 O2 Flow FiO2 Time Delivery Rate 08/12/18 93 21 14:04 08/12/18 105 20 Nasal 14:02 Cannula 08/12/18 98.3 103/56 11:02 (72) 08/12/18 3.0 09:32 Intake and Output 08/11/18 08/11/18 08/12/18 1515:00 23:00 07:00 IntakeIntake Total 150 ml 2300 ml 1015 ml BalanceBalance 150 ml 2300 ml 1015 ml Results Result Diagram: 08/12/18 0613 08/12/18 0613 Results 24hrs Laboratory Tests Test 08/12/18 06:13 White Blood Count 15.3 H Red Blood Count 3.30 L Hemoglobin 9.5 L Hematocrit 29.4 L Mean Corpuscular Volume 89.1 Mean Corpuscular Hemoglobin 28.8 L Mean Corpuscular Hemoglobin Concent 32.3 Red Cell Distribution Width 13.8 Platelet Count 435 H Mean Platelet Volume 10.1 Immature Granulocytes % 7.700 H Neutrophils % Segmented Neutrophils % (Manual) 84 H Band Neutrophils % (Manual) 3 Lymphocytes % Lymphocytes % (Manual) 7 L Monocytes % Monocytes % (Manual) 3 Eosinophils % Basophils % Metamyelocytes % (manual) 2 H Myelocytes % (Manual) 1 H Nucleated Red Blood Cells % 1 H Immature Granulocytes # 1.180 H Neutrophils # Neutrophils # (Manual) 12.9 H Band Neutrophils # 0.4 Lymphocytes (Manual) 1.0 Lymphocytes # Monocytes # Monocytes # (Manual) 0.4 Eosinophils # Basophils # Metamyelocytes # 0.3 H Myelocytes # 0.1 H Nucleated Red Blood Cells # Platelet Estimate NORMAL Giant Platelets 4 H Polychromasia 2+ Poikilocytosis 1+ Anisocytosis 1+ Ovalocytes 1+ Sodium Level 136 Potassium Level 5.1 Chloride Level 106 Carbon Dioxide Level 23 Anion Gap 7 Blood Urea Nitrogen 7 Creatinine 0.79 Est Glomerular Filtrat Rate mL/min > 60 Glucose Level 205 Calcium Level 9.9 Phosphorus Level 3.0 Magnesium Level 2.4 Medications Medication Current Medications IV Flush (NS 3 ml) 3 ml PER PROTOCOL IV ; Start 08/07/18 at 18:00 Ondansetron HCl (Zofran Inj) 4 mg Q6H PRN IV NAUSEA/VOMITING; Start 08/07/18 at 18:00 Acetaminophen (Tylenol Tab) 650 mg Q6H PRN PO .PAIN 1-3 OR TEMP; Start 08/07/18 at 18:00 Acetaminophen/ Hydrocodone Bitart ([place] (5/325)) 1 tab Q6H PRN PO .PAIN 4-6; Start 08/07/18 at 18:00 Albuterol/ Ipratropium (Duoneb) 3 ml Q6HWA RESP THERAPY HHN Last administered on 08/12/18at 13:58; Admin Dose 3 ML; Start 08/07/18 at 20:00 Albuterol/ Ipratropium (Duoneb) 3 ml Q2H RESP THERAPY PRN HHN shortness of breath; Start 08/07/18 at 18:00 Budesonide (Pulmicort (Neb)) 0.5 mg BID RESP THERAPY HHN Last administered on 08/12/18at 09:28; Admin Dose 0.5 MG; Start 08/07/18 at 20:00 Azithromycin 250 ml @ 250 mls/hr Q24H IVPB Last administered on 08/11/18 18:56; Admin Dose 250 MLS/HR; Start 08/08/18 at 19:00 Cefepime HCl 50 ml @ 100 mls/hr Q12 IVPB Last administered on 08/12/18 08:35; Admin Dose 100 MLS/HR; Start 08/07/18 at 21:00 Fluconazole/ Sodium Chloride 50 ml @ 50 mls/hr Q24H IVPB Last administered on 08/11/18 17:54; Admin Dose 50 MLS/HR; Start 08/07/18 at 18:30 Trimethoprim/ Sulfamethoxazole 15 ml/Dextrose 515 ml @ 343.333 mls/hr Q8 IVPB Last administered on 08/12/18 14:08; Admin Dose 343.333 MLS/HR; Start 08/07/18 at 20:00 Lorazepam (Ativan) 0.5 mg TID PRN PO ANXIETY Last administered on 08/09/18 21:43; Admin Dose 0.5 MG; Start 08/09/18 at 09:00 Acyclovir (Zovirax) 400 mg BID PO Last administered on 08/12/18 08:35; Admin Dose 400 MG; Start 08/09/18 at 21:00 Methylprednisolone Sodium Succinate (Solu-Medrol) 40 mg Q12 IV Last administered on 08/12/18 08:35; Admin Dose 40 MG; Start 08/11/18 at 21:00 YAHIR PARADA NP Aug 12, 2018 14:32
--- NOTE | 2018-08-12 14:59 | PN ---
Date/Time of Note Date/Time of Note DATE: 08/12/18 TIME: 14:57 Assessment/Plan VTE Prophylaxis Risk score (from Ns)>0 risk: 2 SCD applied (from Ns): Yes Pharmacological prophylaxis: heparin Lines/Catheters [facility] Peripheral IV Urinary Cath still in place: No Assessment/Plan Hospital Course 33 yo female with HIV/AIDS presents with pneumonia and acute hypoxic respiratory failure, likely from PCP pneumoina - Continue steroids, abx per ID - O2 as needed HIV/AIDS; - ARVs and PPx per ID discharge when off of O2 Result Diagram: 08/12/1861208/12/1813 Results 24hrs Laboratory Tests Test 08/12/18 06:13 White Blood Count 15.3 H Red Blood Count 3.30 L Hemoglobin 9.5 L Hematocrit 29.4 L Mean Corpuscular Volume 89.1 Mean Corpuscular Hemoglobin 28.8 L Mean Corpuscular Hemoglobin Concent 32.3 Red Cell Distribution Width 13.8 Platelet Count 435 H Mean Platelet Volume 10.1 Immature Granulocytes % 7.700 H Neutrophils % Segmented Neutrophils % (Manual) 84 H Band Neutrophils % (Manual) 3 Lymphocytes % Lymphocytes % (Manual) 7 L Monocytes % Monocytes % (Manual) 3 Eosinophils % Basophils % Metamyelocytes % (manual) 2 H Myelocytes % (Manual) 1 H Nucleated Red Blood Cells % 1 H Immature Granulocytes # 1.180 H Neutrophils # Neutrophils # (Manual) 12.9 H Band Neutrophils # 0.4 Lymphocytes (Manual) 1.0 Lymphocytes # Monocytes # Monocytes # (Manual) 0.4 Eosinophils # Basophils # Metamyelocytes # 0.3 H Myelocytes # 0.1 H Nucleated Red Blood Cells # Platelet Estimate NORMAL Giant Platelets 4 H Polychromasia 2+ Poikilocytosis 1+ Anisocytosis 1+ Ovalocytes 1+ Sodium Level 136 Potassium Level 5.1 Chloride Level 106 Carbon Dioxide Level 23 Anion Gap 7 Blood Urea Nitrogen 7 Creatinine 0.79 Est Glomerular Filtrat Rate mL/min > 60 Glucose Level 205 Calcium Level 9.9 Phosphorus Level 3.0 Magnesium Level 2.4 Subjective 24 Hr Interval Summary Free Text/Dictation Still some SOB Has some hypoxia Exam/Review of Systems Exam Vitals Vital Signs Date Temp Pulse Resp B/P (MAP) Pulse Ox O2 O2 Flow FiO2 Time Delivery Rate 08/12/18 93 21 14:04 08/12/18 105 20 Nasal 14:02 Cannula 08/12/18 98.3 103/56 11:02 (72) 08/12/18 3.0 09:32 Intake and Output 08/11/18 08/11/18 08/12/18 1515:00 23:00 07:00 IntakeIntake Total 150 ml 2300 ml 1015 ml BalanceBalance 150 ml 2300 ml 1015 ml Constitutional: alert, oriented, well developed Psych: no complaints, nl mood/affect Head: normocephalic, atraumatic Eyes: nl conjunctiva, EOMI, nl lids, nl sclera, PERRL ENMT: nl external ears & nose, nl lips & teeth, nl nasal mucosa & septum Neck: supple, non-tender Respiratory: clear to auscultation, normal air movement Cardiovascular: regular rate and rhythm, nl pulses Gastrointestinal: soft, nl liver, spleen, non-tender Musculoskeletal: nl extremities to inspection, nl gait and stance Extremities: normal pulses Neurological: SU[employer] CLERK II-XII intact, nl mental status, nl speech, nl strength Skin: nl turgor; No rash or lesions Lymph: nl lymph nodes Results Results 24hrs Laboratory Tests Test 08/12/18 06:13 White Blood Count 15.3 H Red Blood Count 3.30 L Hemoglobin 9.5 L Hematocrit 29.4 L Mean Corpuscular Volume 89.1 Mean Corpuscular Hemoglobin 28.8 L Mean Corpuscular Hemoglobin Concent 32.3 Red Cell Distribution Width 13.8 Platelet Count 435 H Mean Platelet Volume 10.1 Immature Granulocytes % 7.700 H Neutrophils % Segmented Neutrophils % (Manual) 84 H Band Neutrophils % (Manual) 3 Lymphocytes % Lymphocytes % (Manual) 7 L Monocytes % Monocytes % (Manual) 3 Eosinophils % Basophils % Metamyelocytes % (manual) 2 H Myelocytes % (Manual) 1 H Nucleated Red Blood Cells % 1 H Immature Granulocytes # 1.180 H Neutrophils # Neutrophils # (Manual) 12.9 H Band Neutrophils # 0.4 Lymphocytes (Manual) 1.0 Lymphocytes # Monocytes # Monocytes # (Manual) 0.4 Eosinophils # Basophils # Metamyelocytes # 0.3 H Myelocytes # 0.1 H Nucleated Red Blood Cells # Platelet Estimate NORMAL Giant Platelets 4 H Polychromasia 2+ Poikilocytosis 1+ Anisocytosis 1+ Ovalocytes 1+ Sodium Level 136 Potassium Level 5.1 Chloride Level 106 Carbon Dioxide Level 23 Anion Gap 7 Blood Urea Nitrogen 7 Creatinine 0.79 Est Glomerular Filtrat Rate mL/min > 60 Glucose Level 205 Calcium Level 9.9 Phosphorus Level 3.0 Magnesium Level 2.4 Medications Medication Current Medications IV Flush (NS 3 ml) 3 ml PER PROTOCOL IV ; Start 08/07/18 at 18:00 Ondansetron HCl (Zofran Inj) 4 mg Q6H PRN IV NAUSEA/VOMITING; Start 08/07/18 at 18:00 Acetaminophen (Tylenol Tab) 650 mg Q6H PRN PO .PAIN 1-3 OR TEMP; Start 08/07/18 at 18:00 Acetaminophen/ Hydrocodone Bitart ([place] (5/325)) 1 tab Q6H PRN PO .PAIN 4-6; Start 08/07/18 at 18:00 Albuterol/ Ipratropium (Duoneb) 3 ml Q6HWA RESP THERAPY HHN Last administered on 08/12/18 13:58; Admin Dose 3 ML; Start 08/07/18 at 20:00 Albuterol/ Ipratropium (Duoneb) 3 ml Q2H RESP THERAPY PRN HHN shortness of breath; Start 08/07/18 at 18:00 Budesonide (Pulmicort (Neb)) 0.5 mg BID RESP THERAPY HHN Last administered on 08/12/18 09:28; Admin Dose 0.5 MG; Start 08/07/18 at 20:00 Azithromycin 250 ml @ 250 mls/hr Q24H IVPB Last administered on 08/11/18 18:56; Admin Dose 250 MLS/HR; Start 08/08/18 at 19:00 Cefepime HCl 50 ml @ 100 mls/hr Q12 IVPB Last administered on 08/12/18 08:35; Admin Dose 100 MLS/HR; Start 08/07/18 at 21:00 Fluconazole/ Sodium Chloride 50 ml @ 50 mls/hr Q24H IVPB Last administered on 08/11/18 17:54; Admin Dose 50 MLS/HR; Start 08/07/18 at 18:30 Trimethoprim/ Sulfamethoxazole 15 ml/Dextrose 515 ml @ 343.333 mls/hr Q8 IVPB Last administered on 6/10/19at 14:08; Admin Dose 343.333 MLS/HR; Start 08/07/18 at 20:00 Lorazepam (Ativan) 0.5 mg TID PRN PO ANXIETY Last administered on 08/09/18at 21:43; Admin Dose 0.5 MG; Start 08/09/18 at 09:00 Acyclovir (Zovirax) 400 mg BID PO Last administered on 08/12/18at 08:35; Admin Dose 400 MG; Start 08/09/18 at 21:00 Methylprednisolone Sodium Succinate (Solu-Medrol) 40 mg Q12 IV Last administered on 08/12/18at 08:35; Admin Dose 40 MG; Start 08/11/18 at 21:00 RICKY HUERTA MD Aug 12, 2018 14:59
[2018-08-12] MEDS: FLUCONAZOLE 100 MG/50 ML (PMX) 50 ML IVPB SCH (17:48)
[2018-08-12] MEDS: AZITHROMYCIN 500MG/NS (PMX) 250 ML IVPB SCH (18:56)
[2018-08-13] VITALS (12 sets, daily range): BP systolic 100–114; BP diastolic 52–59; PULSE 71–114; RESP 18–19
[2018-08-13] MEDS: TRIMETHOPRIM/SULFAMETHOXAZOLE 15 ML in DEXTROSE 5% 500 ML IVPB SCH ×3 (05:52→22:49)
[2018-08-13] MEDS: ALBUTEROL/IPRATROPIUM (NEB) 3 ML AMP HHN SCH ×3 (07:35→19:31)
[2018-08-13] MEDS: BUDESONIDE (NEB) 0.5MG/2ML AMP HHN SCH ×2 (07:35→19:31)
[2018-08-13] MEDS: METHYLPREDNISOLONE 40 MG INJ IV SCH ×2 (09:20→21:05)
[2018-08-13] MEDS: ACYCLOVIR 400 MG TAB PO SCH ×2 (09:20→21:05)
[2018-08-13] MEDS: CEFEPIME 1GM/50 ML (PMX) 50 ML IVPB SCH ×2 (09:20→21:05)
--- NOTE | 2018-08-13 12:00 | CONS ---
Assessment/Plan Assessment/Plan Assessment/Plan (Daily) Assessment and recommendations; 1. Patient with history of HIV since admitted with severe bilateral pneumonia likely PCP in etiology with marked overall clinical and radiological improvement on current treatment regimen. 2. Significant improvement in hypoxemia. 3. Patient has been unable to tolerate antiretroviral regimen at least 2 to 3 months prior to admission. With low CD4 count. Continue current supportive care. Discontinue Solu-Medrol and 24 hours. Consider discharge. Consultation Date/Type/Reason Admit Date/Time Aug 07, 2018 at 17:18 Initial Consult Date 08/08/18 Type of Consult Pulmonary Patient is a 33-year-old lady who came into the hospital yesterday with a few days history of shortness of breath and cough. Upon evaluation a chest x-ray was done which is showing diffuse bilateral pneumonia. Patient also had a CT scan of chest done which is showing similar findings. Patient does have a h istory of HIV and has been off her antiretroviral regimen for the last 2 months. Patient does have a low CD4 count. By the time I saw her, patient is completely awake and alert and feeling better since admission. Denies any high fever, chills, chest pain, wheezing, complains of scant cough without any sputum production. Also complains of weight loss for the last few weeks. Past medical history; 1. HIV positive as outlined above. Since . 2. Per patient no recent pneumonia. Patient apparently had pneumonia when she was 4 years old. 3. Patient has been off her medication for the last 2 months because of intolerance to medications. Medications; reviewed. Allergies; none. Social history; noncontributory. Family history; noncontributory. Occupational history; patient is on disability. Review of systems; denies any headache, seizures, chest pain, tightness of breath is slightly improved. Denies any sputum production, chills, hemoptysis. Any abdominal pain, nausea vomiting. Any diarrhea. Complains of weight loss and weakness. Denies any skin changes or any arthritis symptoms. Denies any visual changes. General exam; young woman, appears quite emaciated. Awake and alert. Currently in no distress. Date/Time of Note DATE: 08/13/18 TIME: 11:58 24 HR Interval Summary Free Text/Dictation Patient's condition is stable. Denies any shortness of breath, chest pain, coughing, wheezing. General exam; young female, awake alert, currently no distress. Exam/Review of Systems Exam Vitals Vital Signs Date Temp Pulse Resp B/P (MAP) Pulse Ox O2 O2 Flow FiO2 Time Delivery Rate 08/13/18 98.2 77 18 106/52 98 11:31 (70) 08/13/18 Nasal 08:20 Cannula 08/13/18 3.0 07:36 08/13/18 32 01:09 Intake and Output 08/12/18 08/12/18 08/13/18 1515:00 23:00 07:00 IntakeIntake Total 50 ml 1715 ml 920 ml BalanceBalance 50 ml 1715 ml 920 ml Exam H EENT exam; supple neck, no JVD. No lymphadenopathy. Midline trachea. No thyromegaly. No oral thrush. Patient has good dentition. Chest exam; clear to auscultation. S1-S2 audible, no murmurs. Regular rhythm. Abdomen exam; soft, nontender. No organomegaly. Bowel sounds audible. Extremity exam; no peripheral edema clubbing. FLIGHT ATTENDANT exam; no focal deficit. Results Result Diagram: 08/12/1861208/12/18612 Medications Medication Current Medications IV Flush (NS 3 ml) 3 ml PER PROTOCOL IV ; Start 08/07/18 at 18:00 Ondansetron HCl (Zofran Inj) 4 mg Q6H PRN IV NAUSEA/VOMITING; Start 08/07/18 at 18:00 Acetaminophen (Tylenol Tab) 650 mg Q6H PRN PO .PAIN 1-3 OR TEMP; Start 08/07/18 at 18:00 Acetaminophen/ Hydrocodone Bitart ([place] (5/325)) 1 tab Q6H PRN PO .PAIN 4-6; Start 08/07/18 at 18:00 Albuterol/ Ipratropium (Duoneb) 3 ml Q6HWA RESP THERAPY HHN Last administered on 08/13/18at 07:35; Admin Dose 3 ML; Start 08/07/18 at 20:00 Albuterol/ Ipratropium (Duoneb) 3 ml Q2H RESP THERAPY PRN HHN shortness of breath; Start 08/07/18 at 18:00 Budesonide (Pulmicort (Neb)) 0.5 mg BID RESP THERAPY HHN Last administered on 08/13/18 07:35; Admin Dose 0.5 MG; Start 08/07/18 at 20:00 Azithromycin 250 ml @ 250 mls/hr Q24H IVPB Last administered on 08/12/18 18:56; Admin Dose 250 MLS/HR; Start 08/08/18 at 19:00 Cefepime HCl 50 ml @ 100 mls/hr Q12 IVPB Last administered on 08/13/18 09:20; Admin Dose 100 MLS/HR; Start 08/07/18 at 21:00 Fluconazole/ Sodium Chloride 50 ml @ 50 mls/hr Q24H IVPB Last administered on 08/12/18 17:48; Admin Dose 50 MLS/HR; Start 08/07/18 at 18:30 Trimethoprim/ Sulfamethoxazole 15 ml/Dextrose 515 ml @ 343.333 mls/hr Q8 IVPB Last administered on 08/13/18 05:52; Admin Dose 343.333 MLS/HR; Start 08/07/18 at 20:00 Lorazepam (Ativan) 0.5 mg TID PRN PO ANXIETY Last administered on 08/09/18 21:43; Admin Dose 0.5 MG; Start 08/09/18 at 09:00 Acyclovir (Zovirax) 400 mg BID PO Last administered on 08/13/18 09:20; Admin Dose 400 MG; Start 08/09/18 at 21:00 Methylprednisolone Sodium Succinate (Solu-Medrol) 40 mg Q12 IV Last administered on 08/13/18 09:20; Admin Dose 40 MG; Start 08/11/18 at 21:00 ARLEN PETERSON 11, 2019 12:00
--- NOTE | 2018-08-13 12:11 | CONS ---
Assessment/Plan Assessment/Plan Hospital Course (Demo Recall) Patient is alert feels better CD4 count 74 Antimicrobials: Acyclovir 400 mg twice a day, Zithromax 250 mg daily, cefepime 1 g IV every 12 hours, Bactrim 15 mg/kg IV every 8 hours, fluconazole 100 mg daily, Solu-Medrol CT of the chest on admission revealed extensive bilateral consolidations please see full report in the chart Antimicrobials: Zithromax cefepime IV Bactrim fluconazole, Solu-Medrol Physical examination: Well-developed thin middle-aged woman who is alert in no distress. Head atraumatic normocephalic sclera nonicteric vehicle mucosa dry neck is supple chest rise symmetrical breath sounds with scattered rhonchi heart S1-S2 abdomen soft bowel sounds present extremities without cyanosis edema Assessment: 1. Acute hypoxemic respiratory failure 2. Pneumonia, likely PCP 3. AIDS Plan: Continues to improve, anticipate dc on oral Bactrim DS 1 tab TID till 08/29, then change to daily dose, continue Acyclovir 400 bid, Diflucan 100 mg daily, Zithromax 1250 weekly indefinitely, Pt to fu with HIV physician for further rec-s, she needs to start back on URIBE Consultation Date/Type/Reason Admit Date/Time Aug 07, 2018 at 17:18 Initial Consult Date 08/08/18 Type of Consult id Date/Time of Note DATE: 08/13/18 TIME: 12:07 Exam/Review of Systems Exam Vitals Vital Signs Date Temp Pulse Resp B/P (MAP) Pulse Ox O2 O2 Flow FiO2 Time Delivery Rate 08/13/18 98.2 77 18 106/52 98 11:31 (70) 08/13/18 Nasal 08:20 Cannula 08/13/18 3.0 07:36 08/13/18 32 01:09 Intake and Output 08/12/18 08/12/18 08/13/18 1414:59 22:59 06:59 IntakeIntake Total 50 ml 1715 ml 920 ml BalanceBalance 50 ml 1715 ml 920 ml Results Result Diagram: 08/12/1861208/12/18612 Medications Medication Current Medications IV Flush (NS 3 ml) 3 ml PER PROTOCOL IV ; Start 08/07/18 at 18:00 Ondansetron HCl (Zofran Inj) 4 mg Q6H PRN IV NAUSEA/VOMITING; Start 08/07/18 at 18:00 Acetaminophen (Tylenol Tab) 650 mg Q6H PRN PO .PAIN 1-3 OR TEMP; Start 08/07/18 at 18:00 Acetaminophen/ Hydrocodone Bitart ([place] (5/325)) 1 tab Q6H PRN PO .PAIN 4-6; Start 08/07/18 at 18:00 Albuterol/ Ipratropium (Duoneb) 3 ml Q6HWA RESP THERAPY HHN Last administered on 08/13/18 07:35; Admin Dose 3 ML; Start 08/07/18 at 20:00 Albuterol/ Ipratropium (Duoneb) 3 ml Q2H RESP THERAPY PRN HHN shortness of breath; Start 08/07/18 at 18:00 Budesonide (Pulmicort (Neb)) 0.5 mg BID RESP THERAPY HHN Last administered on 08/13/18 07:35; Admin Dose 0.5 MG; Start 08/07/18 at 20:00 Azithromycin 250 ml @ 250 mls/hr Q24H IVPB Last administered on 08/12/18 18:56; Admin Dose 250 MLS/HR; Start 08/08/18 at 19:00 Cefepime HCl 50 ml @ 100 mls/hr Q12 IVPB Last administered on 08/13/18 09:20; Admin Dose 100 MLS/HR; Start 08/07/18 at 21:00 Fluconazole/ Sodium Chloride 50 ml @ 50 mls/hr Q24H IVPB Last administered on 08/12/18 17:48; Admin Dose 50 MLS/HR; Start 08/07/18 at 18:30 Trimethoprim/ Sulfamethoxazole 15 ml/Dextrose 515 ml @ 343.333 mls/hr Q8 IVPB Last administered on 08/13/18 05:52; Admin Dose 343.333 MLS/HR; Start 08/07/18 at 20:00 Lorazepam (Ativan) 0.5 mg TID PRN PO ANXIETY Last administered on 08/09/18 21:43; Admin Dose 0.5 MG; Start 08/09/18 at 09:00 Acyclovir (Zovirax) 400 mg BID PO Last administered on 08/13/18 09:20; Admin Dose 400 MG; Start 08/09/18 at 21:00 Methylprednisolone Sodium Succinate (Solu-Medrol) 40 mg Q12 IV Last administered on 08/13/18at 09:20; Admin Dose 40 MG; Start 08/11/18 at 21:00 YAHIR PARADA NP Aug 13, 2018 12:11
--- NOTE | 2018-08-13 12:14 | PN ---
Date/Time of Note Date/Time of Note DATE: 08/13/18 TIME: 12:14 Assessment/Plan VTE Prophylaxis Risk score (from Ns)>0 risk: 1 SCD applied (from Nsg): Yes Pharmacological prophylaxis: heparin Lines/Catheters IV Catheter Type (from Nrs): Peripheral IV Urinary Cath still in place: No Assessment/Plan Hospital Course 33 yo female with HIV/AIDS presents with pneumonia and acute hypoxic respiratory failure, likely from PCP pneumonia - Continue steroids, abx per ID - O2 as needed HIV/AIDS; - ARVs and PPx per ID discharge tomorrow Result Diagram: 08/12/1861208/12/18612 Subjective 24 Hr Interval Summary Free Text/Dictation Hypoxia improving Discussed vital importance of ARV adherence Plan for discharge tomorrow Exam/Review of Systems Exam Vitals Vital Signs Date Temp Pulse Resp B/P (MAP) Pulse Ox O2 O2 Flow FiO2 Time Delivery Rate 08/13/18 98.2 77 18 106/52 98 11:31 (70) 08/13/18 Nasal 08:20 Cannula 08/13/18 3.0 07:36 08/13/18 32 01:09 Intake and Output 08/12/18 08/12/18 08/13/18 1515:00 23:00 07:00 IntakeIntake Total 50 ml 1715 ml 920 ml BalanceBalance 50 ml 1715 ml 920 ml Constitutional: alert, oriented, well developed Psych: no complaints, nl mood/affect Head: normocephalic, atraumatic Eyes: nl conjunctiva, EOMI, nl lids, nl sclera, PERRL ENMT: nl external ears & nose, nl lips & teeth, nl nasal mucosa & septum Neck: supple, non-tender Respiratory: clear to auscultation, normal air movement Cardiovascular: regular rate and rhythm, nl pulses Gastrointestinal: soft, nl liver, spleen, non-tender Musculoskeletal: nl extremities to inspection, nl gait and stance Extremities: normal pulses Neurological: ELASTIC ASSEMBLER II-XII intact, nl mental status, nl speech, nl strength Skin: nl turgor; No rash or lesions Lymph: nl lymph nodes Medications Medication Current Medications IV Flush (NS 3 ml) 3 ml PER PROTOCOL IV ; Start 08/07/18 at 18:00 Ondansetron HCl (Zofran Inj) 4 mg Q6H PRN IV NAUSEA/VOMITING; Start 08/07/18 at 18:00 Acetaminophen (Tylenol Tab) 650 mg Q6H PRN PO .PAIN 1-3 OR TEMP; Start 08/07/18 at 18:00 Acetaminophen/ Hydrocodone Bitart ([place] (5/325)) 1 tab Q6H PRN PO .PAIN 4-6; Start 08/07/18 at 18:00 Albuterol/ Ipratropium (Duoneb) 3 ml Q6HWA RESP THERAPY HHN Last administered on 08/13/18at 07:35; Admin Dose 3 ML; Start 08/07/18 at 20:00 Albuterol/ Ipratropium (Duoneb) 3 ml Q2H RESP THERAPY PRN HHN shortness of breath; Start 08/07/18 at 18:00 Budesonide (Pulmicort (Neb)) 0.5 mg BID RESP THERAPY HHN Last administered on 08/13/18 07:35; Admin Dose 0.5 MG; Start 08/07/18 at 20:00 Cefepime HCl 50 ml @ 100 mls/hr Q12 IVPB Last administered on 08/13/18 09:20; Admin Dose 100 MLS/HR; Start 08/07/18 at 21:00 Trimethoprim/ Sulfamethoxazole 15 ml/Dextrose 515 ml @ 343.333 mls/hr Q8 IVPB Last administered on 08/13/18 05:52; Admin Dose 343.333 MLS/HR; Start 08/07/18 at 20:00 Lorazepam (Ativan) 0.5 mg TID PRN PO ANXIETY Last administered on 08/09/18at 21:43; Admin Dose 0.5 MG; Start 08/09/18 at 09:00 Acyclovir (Zovirax) 400 mg BID PO Last administered on 08/13/18 09:20; Admin Dose 400 MG; Start 08/09/18 at 21:00 Methylprednisolone Sodium Succinate (Solu-Medrol) 40 mg Q12 IV Last administered on 08/13/18 09:20; Admin Dose 40 MG; Start 08/11/18 at 21:00 Azithromycin (Zithromax) 250 mg DAILY PO ; Start 08/13/18 at 19:00; Status UNV Fluconazole (Diflucan) 100 mg DAILY PO ; Start 08/13/18 at 12:30; Status RICKY LYNN MD Aug 13, 2018 12:14
[2018-08-13] MEDS: FLUCONAZOLE 100 MG TAB PO SCH (12:36)
[2018-08-13] MEDS: AZITHROMYCIN 250 MG TAB PO SCH (18:25)
[2018-08-14] VITALS (9 sets, daily range): BP systolic 101–109; BP diastolic 56–66; PULSE 86–137; RESP 18
[2018-08-14] MEDS: BUDESONIDE (NEB) 0.5MG/2ML AMP HHN SCH (08:27)
[2018-08-14] MEDS: ALBUTEROL/IPRATROPIUM (NEB) 3 ML AMP HHN SCH ×2 (08:27→14:47)
[2018-08-14] MEDS: TRIMETHOPRIM/SULFAMETHOXAZOLE 15 ML in DEXTROSE 5% 500 ML IVPB SCH ×2 (09:04→14:10)
[2018-08-14] MEDS: METHYLPREDNISOLONE 40 MG INJ IV SCH (09:10)
[2018-08-14] MEDS: ACYCLOVIR 400 MG TAB PO SCH (09:11)
[2018-08-14] MEDS: FLUCONAZOLE 100 MG TAB PO SCH (09:11)
[2018-08-14] MEDS: CEFEPIME 1GM/50 ML (PMX) 50 ML IVPB SCH (09:11)
[2018-08-14] MEDS: AZITHROMYCIN 250 MG TAB PO SCH (09:11)
--- NOTE | 2018-08-14 11:20 | CONS ---
Consultation Date/Type/Reason Admit Date/Time Aug 07, 2018 at 17:18 Initial Consult Date 08/08/18 Type of Consult Pulmonary Patient is a 33-year-old lady who came into the hospital yesterday with a few days history of shortness of breath and cough. Upon evaluation a chest x-ray was done which is showing diffuse bilateral pneumonia. Patient also had a CT scan of chest done which is showing similar findings. Patient does have a history of HIV and has been off her antiretroviral regimen for the last 2 months. Patient does have a low CD4 count. By the time I saw her, patient is completely awake and alert and feeling better since admission. Denies any high fever, chills, chest pain, wheezing, complains of scant cough without any sputum production. Also complains of weight loss for the last few weeks. Past medical history; 1. HIV positive as outlined above. Since . 2. Per patient no recent pneumonia. Patient apparently had pneumonia when she was 4 years old. 3. Patient has been off her medication for the last 2 months because of intolerance to medications. Medications; reviewed. Allergies; none. Social history; noncontributory. Family history; noncontributory. Occupational history; patient is on disability. Review of systems; denies any headache, seizures, chest pain, tightness of breath is slightly improved. Denies any sputum production, chills, hemoptysis. Any abdominal pain, nausea vomiting. Any diarrhea. Complains of weight loss and weakness. Denies any skin changes or any arthritis symptoms. Denies any visual changes. General exam; young woman, appears quite emaciated. Awake and alert. Currently in no distress. Date/Time of Note DATE: 08/14/18 TIME: 11:18 24 HR Interval Summary Free Text/Dictation Patient condition is stable. Remains awake and alert. Denies any shortness of breath, coughing, sputum production. General exam; young woman, awake alert, currently in no distress. H EENT exam; supple neck, no JVD. Patient has good dentition. No thrush. No neck masses. Chest exam; clear to auscultation. S1-S2 audible, no murmurs. Regular rhythm. Abdomen exam; benign. Extremity exam; no peripheral edema clubbing. PIPELINE SYSTEMS OPERATOR exam; no focal deficit. Assessment and recommendations; 1. Patient with history of HIV since admitted for severe bilateral pneumonia likely PCP with marked interval clinical and radiological improvement. 2. Low CD4 count. 3. Patient could not tolerate antiretroviral regimen due to side effects. Continue current supportive care. Discontinue Solu-Medrol. Start prednisone 30 mg daily for additional 2 days with subsequent discontinuation. Agree with discharge on antibiotic regimen prescribed by ID it security consultant. Follow-up with HIV clinic as an outpatient. Exam/Review of Systems Exam Vitals Vital Signs Date Temp Pulse Resp B/P (MAP) Pulse Ox O2 O2 Flow FiO2 Time Delivery Rate 08/14/18 137 08:28 08/14/18 18 97 Nasal 2.0 08:27 Cannula 08/14/18 97.6 105/60 07:33 (75) 08/13/18 32 01:09 Intake and Output 08/13/18 08/13/18 08/14/18 1515:00 23:00 07:00 IntakeIntake Total 500 ml 1000 ml 500 ml BalanceBalance 500 ml 1000 ml 500 ml Results Result Diagram: 08/12/1861208/12/18612 Medications Medication Current Medications IV Flush (NS 3 ml) 3 ml PER PROTOCOL IV ; Start 08/07/18 at 18:00 Ondansetron HCl (Zofran Inj) 4 mg Q6H PRN IV NAUSEA/VOMITING; Start 08/07/18 at 18:00 Acetaminophen (Tylenol Tab) 650 mg Q6H PRN PO .PAIN 1-3 OR TEMP; Start 08/07/18 at 18:00 Acetaminophen/ Hydrocodone Bitart ([place] (5/325)) 1 tab Q6H PRN PO .PAIN 4-6; Start 08/07/18 at 18:00 Albuterol/ Ipratropium (Duoneb) 3 ml Q6HWA RESP THERAPY HHN Last administered on 08/14/18at 08:27; Admin Dose 3 ML; Start 08/07/18 at 20:00 Albuterol/ Ipratropium (Duoneb) 3 ml Q2H RESP THERAPY PRN HHN shortness of breath; Start 08/07/18 at 18:00 Budesonide (Pulmicort (Neb)) 0.5 mg BID RESP THERAPY HHN Last administered on 08/14/18at 08:27; Admin Dose 0.5 MG; Start 08/07/18 at 20:00 Cefepime HCl 50 ml @ 100 mls/hr Q12 IVPB Last administered on 08/14/18 09:11; Admin Dose 100 MLS/HR; Start 08/07/18 at 21:00 Trimethoprim/ Sulfamethoxazole 15 ml/Dextrose 515 ml @ 343.333 mls/hr Q8 IVPB Last administered on 08/14/18 09:04; Admin Dose 343.333 MLS/HR; Start 08/07/18 at 20:00 Lorazepam (Ativan) 0.5 mg TID PRN PO ANXIETY Last administered on 08/09/18 21:43; Admin Dose 0.5 MG; Start 08/09/18 at 09:00 Acyclovir (Zovirax) 400 mg BID PO Last administered on 08/14/18 09:11; Admin Dose 400 MG; Start 08/09/18 at 21:00 Methylprednisolone Sodium Succinate (Solu-Medrol) 40 mg Q12 IV Last administered on 08/14/18 09:10; Admin Dose 40 MG; Start 08/11/18 at 21:00 Azithromycin (Zithromax) 250 mg DAILY PO Last administered on 08/14/18 09:11; Admin Dose 250 MG; Start 08/13/18 at 19:00 Fluconazole (Diflucan) 100 mg DAILY PO Last administered on 08/14/18 09:11; Admin Dose 100 MG; Start 08/13/18 at 12:30 ARLEN PETERSON 12, 2019 11:20
[2018-08-14] MEDS ORDERED: FLUC100T PO (12:32)
[2018-08-14] MEDS ORDERED: PRED10TA PO (12:32)
[2018-08-14] MEDS ORDERED: SULF1TAB31 PO (12:32)
[2018-08-14] MEDS ORDERED: ACYC400T2 PO (12:32)
[2018-08-14] MEDS ORDERED: AZIT600T4 PO (12:32)
--- NOTE | 2018-08-14 12:34 | PDOCDIS ---
Discharge Instructions DIAGNOSIS Discharge Diagnosis HIV/AIDS Pneumocystis pneumonia CONDITION [id number] Patient Condition: [id number] Stable FOLLOW UP/APPOINTMENTS Follow-up Plan Take Bactrim three times daily for two weeks, then start Bactrim 1 tab daily. It is vital for you to check in regularly with your HIV doctor. I have also prescribed you diflucan, azithromycin, and acyclovir to prevent infection while your immune system is compromised. YOU MUST get on antiretroviral medications and take them daily to allow your immune system to recover. You absolutely must check in regularly with your infectious disease doctor and take your medications everyday as prescribed RICKY HUERTA MD Aug 14, 2018 12:34
--- NOTE | 2018-08-14 12:54 | DS ---
Date/Time of Note Date/Time of Note DATE: 08/14/18 TIME: 12:51 Discharge Summary Admission/Discharge Info Admit Date/Time Aug 07, 2018 at 17:18 Discharge Date/Time Discharge Diagnosis HIV/AIDS Pneumocystis pneumonia Patient Condition: Stable Hospital Course 33 yo female with HIV/AIDS presented with pneumonia and acute hypoxic respiratory failure. Her CD4 was in the 60s. Imaging was suggestive of PCP pneumonia. She was started on bactrim and steroids. Her respiratory symptoms improved promptly. Quantiferon was negative. She was extensively counseled on the need for medication adherence At discharged, she was given bactrim course to complete for pneumonia, as well as azithromycin, diflucan, and acyclovir prophyaxis. She will see her infectious disease doctor after discharge. Home Meds Reported Medications [Biktarvy] No Conflict Check, 1 TAB PO DAILY 08/07/18 Azithromycin* (Azithromycin*) 600 Mg Tablet, 600 MG PO DAILY for TO PREVENT PNEUMONIA, TAB 08/07/18 Sulfamethoxazole/Trimethoprim* (Bactrim Ds* Tablet) 1 Each Tablet, 1 TAB PO DAILY for TO PREVENT PNEUMONIA, TAB 08/07/18 Propranolol Hcl* (Propranolol Hcl*) 10 Mg Tablet, 10 MG PO BID for ANXIETY, TAB 08/07/18 Follow-up Plan Take Bactrim three times daily for two weeks, then start Bactrim 1 tab daily. It is vital for you to check in regularly with your HIV doctor. I have also prescribed you diflucan, azithromycin, and acyclovir to prevent infection while your immune system is compromised. YOU MUST get on antiretroviral medications and take them daily to allow your immune system to recover. You absolutely must check in regularly with your infectious disease doctor and take your medications everyday as prescribed Primary Care Provider Not On Staff Doctor RICKY HUERTA MD Aug 14, 2018 12:54
--- NOTE | 2018-08-14 14:12 | CONS ---
Assessment/Plan Assessment/Plan Hospital Course (Demo Recall) Patient is alert feels better CD4 count 74 Antimicrobials: Acyclovir 400 mg twice a day, Zithromax 250 mg daily, cefepime 1 g IV every 12 hours, Bactrim 15 mg/kg IV every 8 hours, fluconazole 100 mg daily, Solu-Medrol CT of the chest on admission revealed extensive bilateral consolidations please see full report in the chart Antimicrobials: Zithromax cefepime IV Bactrim fluconazole, Solu-Medrol Physical examination: Well-developed thin middle-aged woman who is alert in no distress. Head atraumatic normocephalic sclera nonicteric vehicle mucosa dry neck is supple chest rise symmetrical breath sounds with scattered rhonchi heart S1-S2 abdomen soft bowel sounds present extremities without cyanosis edema Assessment: 1. Acute hypoxemic respiratory failure 2. Pneumonia, likely PCP 3. AIDS Plan: Continues to improve, anticipate dc on oral Bactrim DS 1 tab TID till 08/29, then change to daily dose, continue Acyclovir 400 bid, Diflucan 100 mg daily, Zithromax 1250 weekly indefinitely, Pt to fu with HIV physician for further rec-s, she needs to start back on URIBE Consultation Date/Type/Reason Admit Date/Time Aug 07, 2018 at 17:18 Initial Consult Date 08/08/18 Type of Consult id Date/Time of Note DATE: 08/14/18 TIME: 14:12 Exam/Review of Systems Exam Vitals Vital Signs Date Temp Pulse Resp B/P (MAP) Pulse Ox O2 O2 Flow FiO2 Time Delivery Rate 08/14/18 111 14:00 08/14/18 98.1 18 101/66 98 11:40 (78) 08/14/18 Nasal 2.0 08:27 Cannula 08/13/18 32 01:09 Intake and Output 08/13/18 08/13/18 08/14/18 1515:00 23:00 07:00 IntakeIntake Total 500 ml 1000 ml 500 ml BalanceBalance 500 ml 1000 ml 500 ml Results Result Diagram: 08/12/1813 08/12/18612 Medications Medication Current Medications IV Flush (NS 3 ml) 3 ml PER PROTOCOL IV ; Start 08/07/18 at 18:00 Ondansetron HCl (Zofran Inj) 4 mg Q6H PRN IV NAUSEA/VOMITING; Start 08/07/18 at 18:00 Acetaminophen (Tylenol Tab) 650 mg Q6H PRN PO .PAIN 1-3 OR TEMP; Start 08/07/18 at 18:00 Acetaminophen/ Hydrocodone Bitart ([place] (5/325)) 1 tab Q6H PRN PO .PAIN 4-6; Start 08/07/18 at 18:00 Albuterol/ Ipratropium (Duoneb) 3 ml Q6HWA RESP THERAPY HHN Last administered on 08/14/18 08:27; Admin Dose 3 ML; Start 08/07/18 at 20:00 Albuterol/ Ipratropium (Duoneb) 3 ml Q2H RESP THERAPY PRN HHN shortness of breath; Start 08/07/18 at 18:00 Budesonide (Pulmicort (Neb)) 0.5 mg BID RESP THERAPY HHN Last administered on 08/14/18 08:27; Admin Dose 0.5 MG; Start 08/07/18 at 20:00 Cefepime HCl 50 ml @ 100 mls/hr Q12 IVPB Last administered on 08/14/18 09:11; Admin Dose 100 MLS/HR; Start 08/07/18 at 21:00 Trimethoprim/ Sulfamethoxazole 15 ml/Dextrose 515 ml @ 343.333 mls/hr Q8 IVPB Last administered on 08/14/18 14:10; Admin Dose 343.333 MLS/HR; Start 08/07/18 at 20:00 Lorazepam (Ativan) 0.5 mg TID PRN PO ANXIETY Last administered on 08/09/18 21:43; Admin Dose 0.5 MG; Start 08/09/18 at 09:00 Acyclovir (Zovirax) 400 mg BID PO Last administered on 08/14/18 09:11; Admin Dose 400 MG; Start 08/09/18 at 21:00 Azithromycin (Zithromax) 250 mg DAILY PO Last administered on 08/14/18 09:11; Admin Dose 250 MG; Start 08/13/18 at 19:00 Fluconazole (Diflucan) 100 mg DAILY PO Last administered on 08/14/18 09:11; Admin Dose 100 MG; Start 08/13/18 at 12:30 Prednisone (Prednisone) 30 mg DAILY PO ; Start 08/15/18 at 09:00 YAHIR PARADA NP Aug 14, 2018 14:12
[2018-08-15] MEDS ORDERED: predniSONE 10 MG TAB PO SCH (09:00)
== END 2018-08-14 16:20 | disposition home or self-care (01) | DRG 974 ==
LOC: E/R 15:38 → TEL 17:18 → SUATTDRO 17:20 → TEL 08-08 13:19
PROVIDERS: ADMIT Internal Medicine; ATTEND Internal Medicine
PROC: 4A033R1 Measurement of Arterial Saturation, Peripheral, Percutaneous Approach (ICD-10-PCS; principal; 2018-08-09)
DX: B20 Human immunodeficiency virus [HIV] disease (principal); B59 Pneumocystosis; J96.01 Acute respiratory failure with hypoxia; A41.9 Sepsis, unspecified organism; F41.9 Anxiety disorder, unspecified; E55.9 Vitamin D deficiency, unspecified; M06.9 Rheumatoid arthritis, unspecified; I16.0 Hypertensive urgency; Z91.14 Patient's other noncompliance with medication regimen
CPT/HCPCS: 36600; 71045; 71260; 80048; 80053; 80061; 81001; 81003; 81025; 82728; 82803; 83036; 83540; 83605; 83615; 83735; 84100; 84443; 84703; 85025; 85045; 86360; 86480; 86701; 86703; 86704; 86709; 86803; 87081; 87086; 87340; 87536; 93005; 94640; 94664; 96374; 96375; J0456; J0692; J0696; J1450; J1956; J2060; J2916; J2920; J2930; J7030; J7060; Q9967